=== PATIENT | male | born 2000 | race Caucasian/White ===

== ENCOUNTER 2021-10-26 22:26 | Emergency (ER) | payer BC, MEDICAID, SELFPAY ==
[2021-10-26 22:30] VITALS: BP 144/95; PULSE 102; RESP 18; TEMP 36.9; O2SAT 100
[2021-10-27 00:35] VITALS: BP 124/80; PULSE 94; RESP 16; O2SAT 100
[2021-10-27] MEDS: ONDANSETRON HCL ODT 4 MG TABLET PO (00:39)
--- NOTE | 2021-10-27 00:51 | ED.URI ---
HPI - URI/Sore Throat General Chief Complaint: Upper Respiratory Infection <KURTIS Schuster Last Filed: 10/27/21 03:01> Stated Complaint: sore throat, nasal drainage, cough <KURTIS Schuster Last Filed: 10/27/21 03:01> Time Seen by Provider: 10/26/21 23:16 <KURTIS Schuster Last Filed: 10/27/21 03:01> History of Present Illness HPI Narrative: Patient is a 21-year-old male here for evaluation of sore throat, congestion, productive cough for 2 days. States it feels similar to his previous sinus infections, however is unrelieved with Flonase and Sudafed. Sore throat is worse with swallowing, but he is tolerating his secretions and is eating and drinking normally. Additionally developed some nausea and had about 3 episodes of vomiting nonbloody, nonbilious emesis today. Denies sick contacts, abdominal pain, fevers, chills, changes in his stool, ear pain. Patient is not vaccinated against COVID or flu. States he came in today because he missed work the past 2 days and would like a note. <KURTIS Schuster Last Filed: 10/27/21 03:01> Related Data Allergies/Adverse Reactions: Allergies Allergy/AdvReac Type Severity Reaction Status Date / Time No Known Allergies Allergy Verified 10/26/21 22:27 <KURTIS Schuster Last Filed: 10/27/21 03:01> Review of Systems Review of Systems: Gen.: Denies fevers or chills Eyes: Denies eye pain or visual change ENT: Reports congestion and sore throat Respiratory: Reports cough. denies shortness of breath CV: Denies chest pain or palpitations GI: Reports nausea and vomiting. Denies abdominal pain, diarrhea denies burning, urgency, frequency or hematuria Musculoskeletal: Denies back pain or muscle pain Neuro: Denies numbness, tingling, weakness or focal weakness Skin: Denies rash Except as documented, all other systems reviewed and negative <KURTIS Schuster Last Filed: 10/27/21 03:01> Exam Narrative: APPEARANCE: Well appearing, no pain in distress, well-nourished. Head normocephalic and atraumatic. EYES: PERRLA/EOMI, conjunctivae clear NOSE: No nasal drainage NECK: Anterior cervical lymphadenopathy on the left that is mobile and tender. EARS: External ear normal in appearance. THROAT: Oropharynx is erythematous. Mucous membranes are moist. NECK: Supple. No adenopathy, no masses. RESPIRATORY: Airway patent, respirations nonlabored. Clear to auscultation bilaterally, no rales, rhonchi, wheezing. CARDIOVASCULAR: Regular rate and rhythm without murmurs, rubs, or gallops. ABDOMINAL: Normoactive bowel sounds. Soft, nontender, nondistended. No rebound tenderness or guarding. MUSCULOSKELETAL: Extremities are warm and well-perfused. Moves all extremities well. No edema. NEURO: Normal speech. No focal neurologic deficits. SKIN: Skin is warm and dry. No rashes. PSYCHIATRIC: Normal affect/mood. <Nereyda Salgado PA-C - Last Filed: 10/27/21 03:01> Course Course Emergency Course: Patient rechecked, sleeping in room. States he feels better after Zofran. COVID, flu, and strep negative. Will send for prescription for benzonatate for his cough and encouraged Flonase and Sudafed for his symptoms. <Nereyda Salgado PA-C - Last Filed: 10/27/21 03:01> [employer] [employer]/PA Physician Supervision For this patient encounter, I reviewed the [employer] [facility] [facility] or PA documentation, treatment plan, and medical decision making <Peter Morales MD - Last Filed: 10/27/21 03:20> Vital Signs Vital signs: Vital Signs Temperature 98.4 F 10/26/21 22:30 Pulse Rate 102 H 10/26/21 22:30 Respiratory Rate 18 10/26/21 22:30 Blood Pressure 144/95 H 10/26/21 22:30 Pulse Oximetry 100 10/26/21 22:30 Temperature 98.4 F 10/26/21 22:30 Pulse Rate 94 10/27/21 00:35 Respiratory Rate 16 10/27/21 00:35 Blood Pressure 124/80 10/27/21 00:35 Pulse Oximetry 100 10/27/21 00:35 <Nereyda Graham
[2021-10-27 01:23] LABS: Influenza A QL RT-PCR Negative (Negative); Influenza B QL RT-PCR Negative (Negative); SARS-CoV-2 RNA PCR Negative
== END 2021-10-27 01:54 | disposition home or self-care (01) ==
PROVIDERS: Physician Assistant; Emergency Provider Emergency Medicine
DX: J06.9 Acute upper respiratory infection, unspecified (principal); Z20.822 Contact with and (suspected) exposure to COVID-19; Z28.310 Unvaccinated for COVID-19
CPT/HCPCS: 87081; 87502; 87880; 99283; A9270; C9803; U0003; U0005

== ENCOUNTER 2021-12-08 21:53 | Emergency (ER) | payer BC, MEDICAID, SELFPAY ==
[2021-12-08 21:57] VITALS: BP 150/86; PULSE 83; RESP 18; TEMP 35.6; O2SAT 98
--- NOTE | 2021-12-08 23:35 | ED.NAVMDI ---
HPI - Nausea/Vomiting/Diarrhea General Chief complaint: Nausea/Vomiting/Diarrhea Stated complaint: n/v Time Seen by Provider: 12/08/21 22:57 History of Present Illness HPI Narrative: 21-year-old male presents the emergency room complaints of nausea vomiting and diarrhea since Thursday. Patient states symptoms started with abdominal cramping but that is since resolved. Patient fever. Patient denies nonbloody, nonbilious vomiting. Denies any blood in stool. Related Data Allergies Allergy/AdvReac Type Severity Reaction Status Date / Time No Known Allergies Allergy Verified 12/08/21 23:39 Review of Systems Review of Systems: CONSTITUTIONAL: Denies fever, chills, or sweats. EYES: Denies visual changes, redness, or discharge. ENT: Denies rhinorrhea, congestion, sore throat, or otalgia. CARDIOVASCULAR: Denies chest pain, palpitations, or edema. RESPIRATORY: Denies cough or dyspnea. GASTROINTESTINAL: Denies abdominal pain, reports nausea, vomiting, and diarrhea. GENITOURINARY: Denies dysuria or hematuria. SKIN: Denies rash or itching. MUSCULOSKELETAL: Denies back pain, joint pain, or myalgia. NEUROLOGIC: Denies headache, numbness, dizziness, or weakness. PSYCHIATRIC: Denies anxiety or depression. Exam Narrative: GENERAL: Well-appearing, well-nourished, and in no acute distress. HEAD: Normocephalic, atraumatic. EYES: PERRLA and EOMI. CHEST: Clear to auscultation. No respiratory distress. No wheezes rales or rhonchi HEART: Regular rate and rhythm. No murmur heard. Normal peripheral pulses. ABDOMEN: Soft, nontender, nondistended, normal active bowel sounds. EXTREMITIES: Normal range of motion. No edema. SKIN: Warm, dry, no rash. NEURO: No focal deficits. Alert and oriented x3. PSYCH: Normal mood and affect. Course Vital Signs Vital signs: Vital Signs Temperature 35.6 C L 12/08/21 21:57 Pulse Rate 83 12/08/21 21:57 Respiratory Rate 18 12/08/21 21:57 Blood Pressure 150/86 H 12/08/21 21:57 Pulse Oximetry 98 12/08/21 21:57 Oxygen Delivery Room Air 12/08/21 21:57 Temperature 35.6 C L 12/08/21 21:57 Pulse Rate 68 12/08/21 23:37 Respiratory Rate 20 12/08/21 23:37 Blood Pressure 132/67 12/08/21 23:37 Pulse Oximetry 97 12/08/21 23:37 Oxygen Delivery Room Air 12/08/21 21:57 MDM - Nausea/Vomiting/Diarrhea MDM Narrative Medical decision making narrative: 20-year-old male patient presented to the emergency room nausea and vomiting likely secondary to benign infectious cause. Patient is low risk for SBO she had no abdominal surgeries and having regular soft BMs. No signs of DKA on labs. CMP unremarkable with no signs of dehydration causing prerenal DEVORA. Lipase was elevated as a low to moderate suspicion for mild pancreatitis. CMP was unremarkable and along with history and his exam is a low suspicion for appendicitis or any biliary pathology. Patient was given Zofran and IV fluids and tolerated p.o. fluids. Patient be discharged with Zofran follow-up with primary care physician to reevaluate his elevated lipase. Lab Data Attestation: I reviewed the patient's lab results. Result diagrams: 12/08/21 23:40 12/08/21 23:40 Labs: Lab Results 12/08/21 12/08/21 12/09/21 Range/Units 23:40 23:40 00:25 WBC 5.9 (4.5-10.0) K/mm3 RBC 4.93 (4.6-6.20) M/mm3 Hgb 14.5 (14.0-18.0) g/dL Hct 40.9 L (42.0-52.0) % MCV 83.0 (80-100) fl MCH 29.4 (26-34) pg MCHC 35.5 (32-36) g/dl RDW 12.0 (11.5-14.5) % Plt Count 250 (150-375) k/mm3 MPV 10.0 (7.4-10.4) fl Immature Gran % (Auto) 0.3 (0-0.5) % Neut % (Auto) 58.1 (45.5-73.1) % Lymph % (Auto) 24.2 (18.3-44.2) % [place] % (Auto) 8.7 H (2.6-8.5) % Eos % (Auto) 8.0 H (0-4.4) % Baso % (Auto) 0.7 (0.2-1.2) % Lymph # (Auto) 1.42 (0.9-3.2) K/mm3 [place] # (Auto) 0.5 (0.1-0.6) K/mm3 Eos # (Auto) 0.5 H (0-0.3) K/mm3 Baso # (Auto) 0.0 (0.0-0.
[2021-12-08 23:37] VITALS: BP 132/67; PULSE 68; RESP 20; O2SAT 97
[2021-12-08] MEDS: ONDANSETRON INJ 4 MG/2 ML VIAL IV PUSH (23:40)
[2021-12-08] MEDS: SODIUM CHLORIDE 0.9% IV 1,000 ML 999 ML IV CONT (23:41)
[2021-12-08 23:53] LABS: Basophils Percent Auto 0.7 % (0.2-1.2); Eosinophils Absolute Auto 0.5 K/mm3 (0-0.3); Hematocrit 40.9 % (42.0-52.0); Hemoglobin 14.5 g/dL (14.0-18.0); Immature Granulocyte Absolute 0.02 K/mm3 (0.00-0.031); Immature Granulocyte Percent A 0.3 % (0-0.5); Lymphocytes Absolute Auto 1.42 K/mm3 (0.9-3.2); Lymphocytes Percent Auto 24.2 % (18.3-44.2); Mean Corpuscular HGB Conc 35.5 g/dl (32-36); Mean Corpuscular Hemoglobin 29.4 pg (26-34); Monocytes Absolute Auto 0.5 K/mm3 (0.1-0.6); Monocytes Percent Auto 8.7 % (2.6-8.5); Neutrophils Absolute Auto 3.4 K/mm3 (1.3-6.7); Neutrophils Percent Auto 58.1 % (45.5-73.1); Platelet Count Result 250 k/mm3 (150-375); Red Blood Count 4.93 M/mm3 (4.6-6.20); White Blood Count 5.9 K/mm3 (4.5-10.0)
[2021-12-09 00:03] LABS: Alanine Aminotransferase 46 U/L (6-50); Albumin Level 4.2 g/dL (3.5-5.1); Alkaline Phosphatase 66 U/L (38-126); Anion Gap 10 mmol/L (8-16); Aspartate Amino Transferase 37 U/L (17-59); Bilirubin,Total 0.4 mg/dL (0.2-1.3); Blood Urea Nitrogen 12 mg/dL (9-20); Calcium 8.8 mg/dL (8.4-10.2); Carbon Dioxide 24 mmol/L (22-30); Chloride 106 mmol/L (98-107); Estimated CRCL calculation 173 ml/min; Estimated Glomerular Filt Rate > 60; Glucose 117 mg/dL (65-110); Lipase 475 U/L (23-300); Potassium 3.5 mmol/L (3.4-5.0); Sodium 140 mmol/L (137-145)
[2021-12-09 00:31] LABS: Appearance Urine Clear (Clear); Bilirubin Urine Negative (Negative); Blood Urine Negative (Negative); Color Urine Yellow (Yellow); Glucose Urine UA Negative (Negative); Ketones Urine Negative (Negative); Leukocyte Esterase Ur Negative LEU/UL (Negative); Nitrate Urine Negative (Negative); Protein Urine Negative (Negative); Specific Grav Ur >= 1.030 (1.001-1.035); Urobilinogen Urine 0.2 mg/dL (<2.0); pH Urine 5.5 (5.0-9.0)
[2021-12-09 00:35] LABS: Bacteria Urine Trace /hpf; Mucus Urine Moderate /lpf; RBC Urine 0-2 /hpf (0-2); Squamous Epithelial Cell Urine Rare /hpf (Few); WBC Urine 0-3 /hpf
[2021-12-09 00:38] LABS: Add Urine Microscopic? YES
[2021-12-09 01:15] VITALS: BP 111/67; PULSE 55; RESP 16; O2SAT 98
== END 2021-12-09 01:15 | disposition home or self-care (01) ==
PROVIDERS: Emergency Provider Nurse Practitioner Family
DX: K52.9 Noninfective gastroenteritis and colitis, unspecified (principal)
CPT/HCPCS: 36415; 80053; 81001; 83690; 85025; 96361; 96374; 99284; J2405; J7030

== ENCOUNTER 2022-01-06 21:49 | Inpatient (IN) | payer BC, MEDICAID, SELFPAY ==
--- NOTE | ~2022-01-06 | CT_ITS ---
EXAMINATION: CT abdomen pelvis w con DATE: 01/07/2022 01:25 INDICATION: Abdominal pain. Elevated serum lipase. TECHNIQUE: Computed tomography (CT) of the abdomen and pelvis was performed with 100 CC Omnipaque 300 intravenous contrast. Automated exposure control and iterative reconstruction technique were employe d. Exam dose: 1300.23 mGy-cm total exam DLP. COMPARISON: None. FINDINGS: The lung bases are clear of infiltrate or consolidation. Normal heart size. No pericardial or pleural effusion. There is hepatic steatosis. No hepatic, splenic, pancreatic, adrenal or renal space-occupying mass le adeel is evident. No bile duct or pancreatic duct dilatation. The gallbladder appears normal. No urina ry tract calculus or hydroureteronephrosis. Normal caliber of the abdominal aorta. No intraperitoneal or retroperitoneal or pelvic mass lesion or adenopathy or ascites. The urinary bladder and prostate gland are unremarkable. No bowel obstruction, bowel wall thickening, pneumatosis or intraperitoneal free air is detected. No evidence of appendicitis. Included skeletal structures are unremarkable. IMPRESSION: Hepatic steatosis The pancreas appears normal; normal pancreas on CT examination does not eliminate the possibility of acute pancreatitis. Clinical correlation is advised Reviewed, dictated and finalized at [facility]. Reviewed, dictated and finalized at [facility]. IMPRESSION: Hepatic steatosis The pancreas appears normal; normal pancreas on CT examination does not elimina te the possibility of acute pancreatitis. Clinical correlation is advised
--- NOTE | ~2022-01-06 | US_ITS ---
US abdomen limited DATE: 01/07/2022 08:44 INDICATION: Abdominal pain. Pancreatitis. TECHNIQUE: Real-time imaging of liver, pancreas, gallbladder COMPARISON: 01/07/2022 CT abdomen pelvis FINDINGS: Hepatic steatosis. Normal hepatopedal portal venous flow direction. No hepatic space-occupy ing mass lesion is detected. One or more filling defect(s) may be present at the neck of the gallbladder; cholelithiasis is not ex cluded. No gallbladder wall thickening. Negative sonographic Nicole's sign. The common bile duct measures 3.8 mm, within normal limits. There is limited visualization of the pancreas. IMPRESSION: Possible filling defect(s) at gallbladder neck; cannot exclude cholelithiasis. No gallbla dder distention or gallbladder wall thickening. Negative sonographic Nicole's sign. Consider correlation with hepatobiliary scan Reviewed, dictated and finalized at [facility]. Reviewed, dictated and finalized at [facility]. IMPRESSION: Possible filling defect(s) at gallbladder neck; cannot exclude chol elithiasis. No gallbladder distention or gallbladder wall thickening. Negative sonographic Nicole's sign. Consider correlation with hepatobiliary scan
[2022-01-06 22:46] VITALS: BP 156/87; PULSE 70; RESP 16; TEMP 36.2; O2SAT 100
[2022-01-07 00:30] VITALS: BP 149/84; PULSE 83; RESP 18; O2SAT 99
[2022-01-07 00:46] LABS: Basophils Absolute Auto 0.1 K/mm3 (0.0-0.1); Basophils Percent Auto 0.8 % (0.2-1.2); Eosinophils Absolute Auto 0.5 K/mm3 (0-0.3); Eosinophils Percent Auto 7.1 % (0-4.4); Hematocrit 41.9 % (42.0-52.0); Hemoglobin 14.7 g/dL (14.0-18.0); Immature Granulocyte Absolute 0.03 K/mm3 (0.00-0.031); Immature Granulocyte Percent A 0.4 % (0-0.5); Lymphocytes Absolute Auto 1.92 K/mm3 (0.9-3.2); Lymphocytes Percent Auto 26.6 % (18.3-44.2); Mean Corpuscular HGB Conc 35.1 g/dl (32-36); Mean Corpuscular Hemoglobin 29.1 pg (26-34); Mean Platelet Volume 10.2 fl (7.4-10.4); Monocytes Absolute Auto 0.6 K/mm3 (0.1-0.6); Monocytes Percent Auto 8.2 % (2.6-8.5); Neutrophils Absolute Auto 4.1 K/mm3 (1.3-6.7); Neutrophils Percent Auto 56.9 % (45.5-73.1); Platelet Count Result 237 k/mm3 (150-375); Red Blood Count 5.05 M/mm3 (4.6-6.20); Red Cell Distribution Width 11.8 % (11.5-14.5); White Blood Count 7.2 K/mm3 (4.5-10.0)
[2022-01-07 00:57] LABS: Alanine Aminotransferase 35 U/L (6-50); Albumin Level 4.4 g/dL (3.5-5.1); Alkaline Phosphatase 63 U/L (38-126); Anion Gap 3 mmol/L (8-16); Aspartate Amino Transferase 28 U/L (17-59); Bilirubin,Total 0.1 mg/dL (0.2-1.3); Blood Urea Nitrogen 10 mg/dL (9-20); Calcium 9.2 mg/dL (8.4-10.2); Carbon Dioxide 27 mmol/L (22-30); Chloride 112 mmol/L (98-107); Estimated CRCL calculation 197 ml/min; Estimated Glomerular Filt Rate > 60; Glucose 107 mg/dL (65-110); Lactic Acid Reflex 1.3 mmol/L (0.7-2.0); Lipase 1336 U/L (23-300); Potassium 4.1 mmol/L (3.4-5.0); Sodium 142 mmol/L (137-145)
--- NOTE | 2022-01-07 01:07 | ED.GENADULT ---
HPI - General Adult General Chief complaint: Nausea/Vomiting/Diarrhea Stated complaint: abd pain, vomitting Time Seen by Provider: 01/07/22 00:24 History of Present Illness HPI narrative: 21-year-old male presenting to the emergency department for evaluation of periumbilical abdominal pain. Patient states the pain has been intermittent over the course of the last month. Patient states it is worsened with movement but also worsened with eating. Patient denies any prior history with his gallbladder. Patient denies any alcohol use. Patient was seen in the emergency room for this same pain and was referred to his primary care physician. During his first ER visit his lipase was mildly elevated but did normalize for his PCP visit 1.5 weeks ago. Patient was told that everything was normal at that time. Today patient woke up with more significant abdominal pain. Patient did have a bowel movement and states that some of the pain did improve. While in route to work patient had onset of vomiting, which was new. Patient presented to the emergency department for evaluation due to the persistent pain and new onset of emesis. Related Data Allergies Allergy/AdvReac Type Severity Reaction Status Date / Time No Known Allergies Allergy Verified 01/06/22 22:48 Review of Systems Review of Systems: CONSTITUTIONAL: Denies fever, chills, or sweats. EYES: Denies visual changes, redness, or discharge. ENT: Denies rhinorrhea, congestion, sore throat, or otalgia. CARDIOVASCULAR: Denies chest pain, palpitations, or edema. RESPIRATORY: Denies cough or dyspnea. GASTROINTESTINAL: See HPI GENITOURINARY: Denies dysuria or hematuria. SKIN: Denies rash or itching. MUSCULOSKELETAL: Denies back pain, joint pain, or myalgia. NEUROLOGIC: Denies headache, numbness, or weakness. [facility] Family History Family History Grandparent Cancer Lupus Social History Social History (Updated 12/23/21 @ 07:56 by Emi Theodore MA) Smoking packs per day: 0.4 Smoking cigarettes per day: 8.0 Years smoked: 2 Smoking pack-years: 0.80 Smoking status: Current every day smoker Tobacco type: cigarettes Second hand tobacco smoke exposure: No Alcohol intake: never Substance use: current Substance use type: marijuana Gender identity (if verbalized by the patient): Male Spiritual care concerns: No Agree to blood products: Yes Exam Narrative: APPEARANCE: Well appearing, no pain, no distress, well-nourished. HEAD: normocephalic, atraumatic. EYES: PERRLA/EOMI, conjunctivae clear. NOSE: Normal no drainage NECK: Supple. No adenopathy, no masses. RESPIRATORY: Airway patent, respirations nonlabored. Clear to auscultation bilaterally, no rales, rhonchi, wheezing. CARDIOVASCULAR: Regular rate and rhythm without murmurs rubs or gallops. ABDOMINAL: Soft, normal bowel sounds, nondistended, some mid abdominal pain to palpation. MUSCULOSKELETAL: Moves all extremities. Strength/ROM intact, No edema, No calf tenderness. NEURO: Alert. Cranial nerves II through XII intact. Good gait. Good coordination SKIN: Warm, dry. Normal Color Course Course Emergency Course: Patient's lipase was elevated at 1336. CT scan showed no acute abnormality. Case was discussed with the hospitalist and patient was made n.p.o. and will be admitted for observation to [facility]. Patient was updated on the plan for admission. All questions and concerns were addressed. Right upper quadrant ultrasound was ordered for inpatient. Vital Signs Vital signs: Vital Signs Temperature 97.1 F L 01/06/22 22:46 Pulse Rate 70 01/06/22 22:46 Respiratory Rate 16 01/06/22 22:46 Blood Pressure 156/87 H 01/06/22 22:46 Pulse Oximetry 100 01/06/22 22:46 Temperature 98.5 F 01/07/22 04:30 Pulse Rate 64 01/07/22 04:30 Respiratory Rate 16 01/07/22 04:30 Blood Pressure 132/87 01/07/22 04:30 Pulse Oximetry 100 01/07/22 0
[2022-01-07] MEDS: SODIUM CHLORIDE 0.9% IV 1,000 ML 999 ML IV CONT (01:20)
[2022-01-07 01:58] LABS: Appearance Urine Clear (Clear); Bilirubin Urine Negative (Negative); Blood Urine Negative (Negative); Color Urine Yellow (Yellow); Glucose Urine UA Negative (Negative); Ketones Urine Negative (Negative); Leukocyte Esterase Ur Negative LEU/UL (Negative); Nitrate Urine Negative (Negative); Protein Urine Negative (Negative); Specific Grav Ur <= 1.005 (1.001-1.035); Urobilinogen Urine 0.2 mg/dL (<2.0)
[2022-01-07 02:01] LABS: Add Urine Microscopic? NO
[2022-01-07 02:31] VITALS: BP 135/89; PULSE 64; RESP 18; O2SAT 100
[2022-01-07] MEDS: ONDANSETRON INJ 4 MG/2 ML VIAL IV PUSH ×4 (02:31→15:38)
[2022-01-07 03:17] LABS: Triglycerides 155 mg/dL (<150)
[2022-01-07] MEDS: HYDROmorphone HCL INJ (*CRX) 1 MG/ML SYR 0.5 MG IV PUSH (03:29)
[2022-01-07] MEDS: SODIUM CHLORIDE 0.9% IV 1,000 ML 200 ML IV CONT ×2 (03:30→10:32)
[2022-01-07 04:14] VITALS: BP 115/74; PULSE 56; RESP 18; O2SAT 99
[2022-01-07 04:23] LABS: SARS-CoV-2 RNA PCR Negative
--- NOTE | 2022-01-07 04:24 | ADMGEN ---
This patient, Ortiz Siegel, was admitted to [facility] Surg Room 319-01. Patient/family oriented to hospital policies and general routines including ID bracelet, bed and alarms, visiting hours, pain management, procedures, bathroom and other care routines, personal items, smoking policy, room service/diet, and visiting hours. Information on how to activate the Rapid Response Team has been discussed. Patient/Family are encouraged to report perceived risks to care and to ask questions if they do not understand what they are told or what they should do.
[2022-01-07 04:30] VITALS: BP 132/87; PULSE 64; RESP 16; TEMP 36.9; O2SAT 100
[2022-01-07 06:00] VITALS: BP 132/81; PULSE 61; RESP 16; TEMP 36.8; O2SAT 99
[2022-01-07] MEDS: NICOTINE (*PBKC) 14 MG PATCH 1 PATCH TRANSDERM (07:44)
--- NOTE | 2022-01-07 09:44 | PM.IMHP ---
H&P: HPI History of Present Illness Date/Time: 01/07/22 09:44 PMFSH Family History Family History Grandparent Cancer Lupus Social History Social History (Updated 12/23/21 @ 07:56 by Emi Theodore MA) Smoking packs per day: 0.4 Smoking cigarettes per day: 8.0 Years smoked: 2 Smoking pack-years: 0.80 Smoking status: Current every day smoker Tobacco type: cigarettes Second hand tobacco smoke exposure: No Alcohol intake: never Substance use: current Substance use type: marijuana Gender identity (if verbalized by the patient): Male Spiritual care concerns: No Agree to blood products: Yes Meds Home Medications and Allergies Home Medications Medication Instructions Recorded Confirmed Type pantoprazole 40 mg tablet,delayed 40 mg PO QAM #60 tabs 12/23/21 12/23/21 Rx release Allergies Allergy/AdvReac Type Severity Reaction Status Date / Time No Known Allergies Allergy Verified 01/06/22 22:48 Vital Signs Vital Signs - 24 hr 01/06/22 22:46 01/07/22 00:30 01/07/22 02:31 Temperature 97.1 F L Pulse Rate 70 83 64 Respiratory Rate 16 18 18 Blood Pressure 156/87 H 149/84 H 135/89 Pulse Oximetry 100 99 100 Oxygen Delivery Room Air 01/07/22 04:14 01/07/22 04:30 01/07/22 06:00 Temperature 98.5 F 98.3 F Pulse Rate 56 L 64 61 Respiratory Rate 18 16 16 Blood Pressure 115/74 132/87 132/81 Pulse Oximetry 99 100 99 Oxygen Delivery H&P: Results Labs Labs: Short CBC 01/07/22 Range/Units 00:41 WBC 7.2 (4.5-10.0) K/mm3 Hgb 14.7 (14.0-18.0) g/dL Hct 41.9 L (42.0-52.0) % Plt Count 237 (150-375) k/mm3 BMP 01/07/22 00:41 Sodium 142 Potassium 4.1 Chloride 112 H Carbon Dioxide 27 BUN 10 Creatinine 0.70 Glucose 107 Calcium 9.2 Liver Function 01/07/22 Range/Units 00:41 Total Bilirubin 0.1 L (0.2-1.3) mg/dL AST 28 (17-59) U/L ALT 35 (6-50) U/L Alkaline Phosphatase 63 (38-126) U/L Albumin 4.4 (3.5-5.1) g/dL Urine 01/07/22 Range/Units 01:52 Urine Color Yellow (Yellow) Urine Appearance Clear (Clear) Urine pH 6.0 (5.0-9.0) Ur Specific [place] <= 1.005 (1.001-1.035) Urine Protein Negative (Negative) mg/dL Urine Glucose (UA) Negative (Negative) mg/dL
[2022-01-07 14:00] VITALS: BP 140/92; PULSE 81; RESP 18; TEMP 36.6; O2SAT 100
--- NOTE | 2022-01-07 16:31 | PM.SD2 ---
Same Day Admit/Disch: HPI History of Present Illness Chief complaint: Pancreatitis Narrative: Ortiz Siegel is a 21 year old male with past medical history of tobacco dependence occasional GERD is presenting with 4-6 week history of intermittent nausea with vomiting. He denies any abdominal pain or diarrhea. No chest pain or shortness of breath. No nausea, vomiting or diarrhea. No fevers or chills. Nausea and vomiting does not seem to correlate with food intake. It does not seem to be positional. He states it is most correlated with stress. In the ER, he was started on IV fluids for possible dehydration. CT abdomen and pelvis was done and was essentially nonacute. Right upper quadrant ultrasound was performed and showed possible abnormality in the gallbladder, radiology recommended HIDA scan. Patient requesting to go home if he can tolerate dinner. He states he has been under significant stress at home and at work and is worried that all of his symptoms are stress related. [facility] Family History Family History Grandparent Cancer Lupus Social History Social History Smoking packs per day: 0.4 Smoking cigarettes per day: 8.0 Years smoked: 2 Smoking pack-years: 0.80 Smoking status: Current every day smoker Tobacco type: cigarettes Second hand tobacco smoke exposure: No Alcohol intake: never Substance use: current Substance use type: marijuana Gender identity (if verbalized by the patient): Male Spiritual care concerns: No Agree to blood products: Yes Same Day Admit/Disch: Med Pre-admit Medications Home Medications Medication Instructions Recorded Confirmed Type pantoprazole 40 mg tablet,delayed 40 mg PO QAM #60 tabs 12/23/21 12/23/21 Rx release Exam Narrative: General: Patient resting comfortably in bed, no acute distress HEENT: Atraumatic, normocephalic, mucous membranes moist CV: Regular rate and rhythm, S1, S2, no murmurs rubs or gallops noted Lungs: Clear to auscultation bilaterally, no rales or crackles noted, no wheezes, good air entry Abdomen: Soft, nontender, nondistended Extremities: Normal to inspection, no edema noted Skin: No rashes noted, no lesions or wounds seen Psych: Euthymic, normal affect Neuro: Cranial nerves 2-12 grossly intact, strength 5/5 upper and lower extremities noted DS: Data Data Completed and Pending Labs on day of discharge: Labs from last 24 hours 01/07/22 01/07/22 01/07/22 03:42 01:52 00:41 WBC RBC Hgb Hct MCV MCH MCHC RDW Plt Count MPV Immature Gran % (Auto) Neut % (Auto) Lymph % (Auto) [place] % (Auto) Eos % (Auto) Baso % (Auto) Lymph # (Auto) [place] # (Auto) Eos # (Auto) Baso # (Auto) Abs Immat Gran (auto) Absolute Neuts (auto) Absolute Nucleated RBC Nucleated RBC % Sodium Potassium Chloride Carbon Dioxide Anion Gap BUN Creatinine Estim Creat Clear Calc Estimated GFR Glucose Lactic Acid 1.3 Calcium Total Bilirubin AST ALT Alkaline Phosphatase Total Protein Albumin Triglycerides Lipase Urine Color Yellow Urine Appearance Clear Urine pH 6.0 Ur Specific [place] <= 1.005 Urine Protein Negative Urine Glucose (UA) Negative Urine Ketones Negative Ur Blood (Man) Negative Urine Nitrate Negative Urine Bilirubin Negative Urine Urobilinogen 0.2 Leukocyte Esterase Rfl Negative SARS-CoV-2 RNA (RT-PCR) Negative 01/07/22 01/07/22 01/07/22 00:41 00:41 00:40 WBC 7.2 RBC 5.05 Hgb 14.7 Hct 41.9 L MCV 83.0 MCH 29.1 MCHC 35.1 RDW 11.8 Plt Count 237 MPV 10.2 Immature Gran % (Auto) 0.4 Neut % (Auto) 56.9 Lymph % (Auto) 26.6 [place] % (Auto) 8.2 Eos % (Auto) 7.1 H Baso % (Auto) 0.8
[2022-01-07 16:56] LABS: Hematocrit 41.2 % (42.0-52.0); Hemoglobin 14.7 g/dL (14.0-18.0); Mean Corpuscular HGB Conc 35.7 g/dl (32-36); Mean Corpuscular Hemoglobin 29.3 pg (26-34); Mean Corpuscular Volume 82.1 fl (80-100); Mean Platelet Volume 9.9 fl (7.4-10.4); Platelet Count Result 238 k/mm3 (150-375); Red Blood Count 5.02 M/mm3 (4.6-6.20); Red Cell Distribution Width 11.9 % (11.5-14.5); White Blood Count 9.4 K/mm3 (4.5-10.0)
[2022-01-07 17:06] LABS: Alanine Aminotransferase 35 U/L (6-50); Albumin Level 4.4 g/dL (3.5-5.1); Alkaline Phosphatase 58 U/L (38-126); Anion Gap 7 mmol/L (8-16); Aspartate Amino Transferase 28 U/L (17-59); Bilirubin,Total 0.4 mg/dL (0.2-1.3); Blood Urea Nitrogen 6 mg/dL (9-20); Calcium 8.8 mg/dL (8.4-10.2); Carbon Dioxide 27 mmol/L (22-30); Chloride 105 mmol/L (98-107); Estimated CRCL calculation 174 ml/min; Estimated Glomerular Filt Rate > 60; Glucose 87 mg/dL (65-110); Lipase 198 U/L (23-300); Potassium 3.6 mmol/L (3.4-5.0); Sodium 139 mmol/L (137-145)
== END 2022-01-07 18:55 | disposition home or self-care (01) | DRG 440 ==
LOC: ANHED 01-07 03:09 → ANH3MEDSUR 01-07 04:01
PROVIDERS: Admitting Provider Internal Medicine; Emergency Provider Emergency Medicine; Visit Provider Student in an Organized Health Care Education/Training Program
DX: K85.90 Acute pancreatitis without necrosis or infection, unspecified (principal); E86.0 Dehydration; K21.9 Gastro-esophageal reflux disease without esophagitis; Z20.822 Contact with and (suspected) exposure to COVID-19; F17.210 Nicotine dependence, cigarettes, uncomplicated
CPT/HCPCS: 36415; 74177; 76705; 80053; 81003; 83605; 83690; 84478; 85025; 85027; 96361; 96374; 96375; 99285; A9270; C9803; G0378; J1170; J2405; J7030; Q9967; U0003; U0005

== ENCOUNTER 2022-01-11 04:53 | Emergency (ER) | payer BC, MEDICAID, SELFPAY ==
--- NOTE | ~2022-01-11 | US_ITS ---
US abdomen limited DATE: 01/11/2022 07:33 INDICATION: Right upper quadrant abdominal pain TECHNIQUE: Real-time imaging of liver, pancreas, gallbladder COMPARISON: 01/07/2022 Limited abdominal ultrasound examination 01/07/2022 CT abdomen pelvis FINDINGS: Multiple filling defects of the gallbladder with shadowing consistent with cholelithiasis. No gallbladder wall thickening or pericholecystic fluid collection. Negative sonographic Nicole's sig n. Common bile duct measures 4.8 mm, normal. No hepatic space-occupying mass lesion is detected. Normal hepatopedal portal venous flow direction. The pancreas is not well demonstrated. IMPRESSION: Cholelithiasis Reviewed, dictated and finalized at [facility]. Reviewed, dictated and finalized at location A. IMPRESSION: Cholelithiasis
[2022-01-11 04:56] VITALS: BP 147/87; PULSE 102; RESP 16; TEMP 36.2; O2SAT 99
[2022-01-11 05:56] LABS: Basophils Percent Auto 0.5 % (0.2-1.2); Eosinophils Absolute Auto 0.5 K/mm3 (0-0.3); Eosinophils Percent Auto 6.3 % (0-4.4); Hematocrit 42.2 % (42.0-52.0); Hemoglobin 14.6 g/dL (14.0-18.0); Immature Granulocyte Absolute 0.02 K/mm3 (0.00-0.031); Immature Granulocyte Percent A 0.3 % (0-0.5); Lymphocytes Absolute Auto 2.09 K/mm3 (0.9-3.2); Lymphocytes Percent Auto 27.6 % (18.3-44.2); Mean Corpuscular HGB Conc 34.6 g/dl (32-36); Mean Corpuscular Hemoglobin 28.9 pg (26-34); Mean Corpuscular Volume 83.4 fl (80-100); Mean Platelet Volume 10.1 fl (7.4-10.4); Monocytes Absolute Auto 0.6 K/mm3 (0.1-0.6); Monocytes Percent Auto 7.8 % (2.6-8.5); Neutrophils Absolute Auto 4.4 K/mm3 (1.3-6.7); Neutrophils Percent Auto 57.5 % (45.5-73.1); Platelet Count Result 258 k/mm3 (150-375); Red Blood Count 5.06 M/mm3 (4.6-6.20); White Blood Count 7.6 K/mm3 (4.5-10.0)
[2022-01-11 06:06] LABS: Alanine Aminotransferase 43 U/L (6-50); Albumin Level 4.9 g/dL (3.5-5.1); Alkaline Phosphatase 59 U/L (38-126); Anion Gap 7 mmol/L (8-16); Aspartate Amino Transferase 32 U/L (17-59); Bilirubin,Total 0.2 mg/dL (0.2-1.3); Blood Urea Nitrogen 11 mg/dL (9-20); Calcium 9.3 mg/dL (8.4-10.2); Carbon Dioxide 29 mmol/L (22-30); Chloride 108 mmol/L (98-107); Estimated CRCL calculation 176 ml/min; Estimated Glomerular Filt Rate > 60; Glucose 78 mg/dL (65-110); Lipase 47 U/L (23-300); Potassium 4.1 mmol/L (3.4-5.0); Sodium 144 mmol/L (137-145)
--- NOTE | 2022-01-11 07:10 | ED.ABDPAIN ---
HPI - Abdominal Pain General Chief Complaint: Abdominal Pain Stated Complaint: abd pain Time Seen by Provider: 01/11/22 07:10 History of Present Illness HPI narrative: pt was just here and left admission early elevated lipase normal labs otherwise and normal ct ? US galbladder issue wanted to get hyda scan now pain back no new issues and no one discussed gb diet he says so we discussed foods to avoid Related Data Allergies Allergy/AdvReac Type Severity Reaction Status Date / Time No Known Allergies Allergy Verified 01/06/22 22:48 Review of Systems Constitutional: Comments: CONSTITUTIONAL: Denies fever, chills, or sweats. EYES: Denies visual changes, redness, or discharge. ENT: Denies rhinorrhea, congestion, sore throat, or otalgia. CARDIOVASCULAR: Denies chest pain, palpitations, or edema. RESPIRATORY: Denies cough or dyspnea. GASTROINTESTINAL: Denies nausea, vomiting, or diarrhea.has same ruq pain again SKIN: Denies rash or itching. MUSCULOSKELETAL: Denies back pain, joint pain, or myalgia. NEUROLOGIC: Denies headache, numbness, or weakness. PSYCHIATRIC: Denies anxiety or depression. [facility] Family History Family History Grandparent Cancer Lupus Social History Social History Smoking packs per day: 0.4 Smoking cigarettes per day: 8.0 Years smoked: 2 Smoking pack-years: 0.80 Smoking status: Current every day smoker Tobacco type: cigarettes Second hand tobacco smoke exposure: No Alcohol intake: never Substance use: current Substance use type: marijuana Gender identity (if verbalized by the patient): Male Spiritual care concerns: No Agree to blood products: Yes Exam Const: Other: APPEARANCE: Well appearing, no pain in distress, well-nourished. Head normocephalic atraumtaic. EYES: PERRLA/EOMI, conjunctivae very clear. NOSE: Normal no drainage EARS:TMS clear Raulito Costa, with good light reflex. THROAT: Pharynx clear, no exudate. NECK: Supple. No adenopathy, no masses. RESPIRATORY: Airway patent, repsirations nonlabored. Clear to auscultation bilaterally, no rales, rhonchi, wheezing. CARDIOVASCULAR: Regular rate and rhythm without murmurs rubs or gallops. ABDOMINAL: Soft, nontender, nondistended, no hepatosplenomegally no pain on exam I could reproduce MUSCULOSKELETAl: Moves all extremities. Strenght/ROM intact, No edema, No calf tenderness. NEURO: Alert. Cranial nerves II through XII intact. Good gait. Good coordination SKIN:: Warm, dry. Normal Color PSYCHIATRIC: Normal affect/mood, normal interaction with parents. Course Course Emergency Course: updated [place] at 0819 good with plan Vital Signs Vital signs: Vital Signs Temperature 36.2 C L 01/11/22 04:56 Pulse Rate 102 H 01/11/22 04:56 Respiratory Rate 16 01/11/22 04:56 Blood Pressure 147/87 H 01/11/22 04:56 Pulse Oximetry 99 01/11/22 04:56 Oxygen Delivery Room Air 01/11/22 04:56 Temperature 36.2 C L 01/11/22 04:56 Pulse Rate 102 H 01/11/22 04:56 Respiratory Rate 16 01/11/22 04:56 Blood Pressure 147/87 H 01/11/22 04:56 Pulse Oximetry 99 01/11/22 04:56 Oxygen Delivery Room Air 01/11/22 04:56 MDM - Abdominal Pain Lab Data Result diagrams: 01/11/22 05:51 01/11/22 05:51 Labs: Lab Results 01/11/22 01/11/22 Range/Units 05:51 05:51 WBC 7.6 (4.5-10.0) K/mm3 RBC 5.06 (4.6-6.20) M/mm3 Hgb 14.6 (14.0-18.0) g/dL Hct 42.2 (42.0-52.0) % MCV 83.4 (80-100) fl MCH 28.9 (26-34) pg MCHC 34.6 (32-36) g/dl RDW 12.0 (11.5-14.5) % Plt Count 258 (150-375) k/mm3 MPV 10.1 (7.4-10.4) fl Immature Gran % (Auto) 0.3 (0-0.5) % Neut % (Auto) 57.5 (45.5-73.1) % Lymph % (Auto) 27.6 (18.3-44.2) % [place] % (Auto) 7.8 (2.6-8.5) % Eos % (Auto) 6.3 H (0-4.4) % Baso % (Auto) 0.5 (0.2-1.2) % Lymph # (Auto) 2.09 (0.9-3
== END 2022-01-11 08:30 | disposition home or self-care (01) ==
PROVIDERS: Emergency Medicine; Emergency Provider Emergency Medicine; PCP Family Medicine Adolescent Medicine
DX: K80.20 Calculus of gallbladder without cholecystitis without obstruction (principal); F17.210 Nicotine dependence, cigarettes, uncomplicated
CPT/HCPCS: 36415; 76705; 80053; 83690; 85025; 99283

== ENCOUNTER 2022-01-29 08:13 | Outpatient (CLI) | payer BC, MEDICAID, SELFPAY | END 2022-01-29 08:14 | disposition home or self-care (01) | PROVIDERS: PCP Family Medicine Adolescent Medicine; Visit Provider Surgery | DX: K80.10 Calculus of gallbladder with chronic cholecystitis without obstruction (principal); Z01.818 Encounter for other preprocedural examination | CPT/HCPCS: 36415; 80076; 82150; 83690; 86850; 86900; 86901 ==

== ENCOUNTER 2022-01-31 00:26 | Day surgery (SDC) | payer BC, MEDICAID, SELFPAY ==
[2022-01-24 14:52] VITALS: BMI 35.6
--- NOTE | 2022-01-24 14:59 | PC.NURSE ---
Report to the Outpatient Waiting Room, entrance under the green pavilion located off [facility], at time 8:30 on date 01/31/22. OR Time: 10:30. - You and your visitor will be asked a series of questions to screen for COVID 19 for your protection. - Only one visitor is allowed at this time. - The patient visitor is requested to leave or wait in car when not with patient. - A mask is required within the hospital. Patients may have clear liquids (water, carbonated beverages, clear teas, apple juice) until 3 hours prior to surgery (7:30) with a maximum of 20 ounces. - No food from midnight until time of surgery Take the following medications with a SIP of water the morning of surgery: NONE Medications to discontinue per physician: N/A Date to take last dose: N/A Please no make-up, nail kyrgyz, hairspray, perfume, deodorant, or body powder the day of surgery. No jewelry (including any body piercings) or valuables the day of surgery, leave them at home. Please take a shower or bath the night before, or the morning of, surgery with an antibacterial soap. Wear comfortable, loose fitting clothing. HIBICLENS SHOWER - Jewelry must be removed prior to entering the operating room. Rings and piercings that are not removed may be cut off. - The hospital will not accept responsibility for valuables. - Please leave all valuables, including medications, at home the day of surgery. If you are going home after surgery, a licensed package delivery driver must drive you home. - NO public transportation without another adult. - We recommend that an adult stay with you for 24 hours following discharge. - We also recommend that you do not drive, make important decision, drink alcoholic beverages, or take any drugs that were not prescribed by your health care provider for at least 24 hours after your discharge time. Follow any additional instructions given to you from your surgeon. If you or anyone in your household have experienced Covid symptoms in the past week, please notify your surgeon or the nurse liaison at the phone number below for possible testing. Telephone instructions given to PT - NITHIN CONNOR and asked if any additional questions and then verbalized understanding. Patient advised to call surgeon office or pre surgery nurse liaison [phone] if any additional questions.
[2022-01-29 08:52] LABS: Alanine Aminotransferase 38 U/L (6-50); Albumin Level 4.7 g/dL (3.5-5.1); Alkaline Phosphatase 63 U/L (38-126); Amylase 86 U/L (30-110); Aspartate Amino Transferase 27 U/L (17-59); Bilirubin,Total 0.5 mg/dL (0.2-1.3); Lipase 327 U/L (23-300)
--- NOTE | 2022-01-30 10:33 | WPDANESEPPF ---
Anes - Initial Pre Proc Eval Procedure: Operation Date: 01/31/22 10:30 Proposed Procedures p Laparoscopic Cholecystectomy with Intraoperative Cholangiogram - David Rasmussen MD <Tolu Matta MD - Last Filed: 01/31/22 12:53> Date/Time: 01/30/22 10:33 <Tolu Matta MD - Last Filed: 01/31/22 12:53> Surgeon: David Rasmussen MD <Tolu Matta MD - Last Filed: 01/31/22 12:53> Pre Op Diagnosis: Chronic Cholecystitis with Stones <Tolu Matta MD - Last Filed: 01/31/22 12:53> Patient Data Age: 21 Gender: M Height: 1.85 m Weight: 122.47 kg <Tolu Matta MD - Last Filed: 01/31/22 12:53> Allergies Allergy/AdvReac Type Severity Reaction Status Date / Time No Known Allergies Allergy Verified 01/24/22 14:51 <Tolu Matta MD - Last Filed: 01/31/22 12:53> Home Medications Medication Instructions Recorded Confirmed Type ondansetron 4 mg disintegrating 1 tablet PO Q8H PRN Nausea 01/24/22 01/31/22 History tablet hydrocodone 5 mg-acetaminophen 325 1 - 2 tablet PO Q6H PRN pain #10 01/31/22 Rx mg tablet tabs ketorolac 10 mg tablet 10 mg PO Q6H 4 days #16 tabs 01/31/22 Rx <Tolu Matta MD - Last Filed: 01/31/22 12:53> Patient hx anesthesia problems: none <Sincere Calvo DO - Last Filed: 01/31/22 09:38> Family hx anesthesia problems: none <Sincere Calvo DO - Last Filed: 01/31/22 09:38> Results Review: All pre-operative results and documents have been reviewed as part of the pre-operative evaluation. <Tolu Matta MD - Last Filed: 01/31/22 12:53> PMFSH Past Medical History Medical History: Medical History Obesity (BMI 30-39.9) Tobacco use <Tolu Matta MD - Last Filed: 01/31/22 12:53> Surgical History Surgical History: Surgical History (Updated 01/31/22 @ 11:37 by Piotr Hogan MD) History of cholecystectomy (01/2022) <Tolu Matta MD - Last Filed: 01/31/22 12:53> Family History Family History: Family History Grandparent Cancer Lupus <Tolu aMtta MD - Last Filed: 01/31/22 12:53> Social History Social History: Social History Smoking packs per day: 0.4 Smoking cigarettes per day: 8.0 Years smoked: 1.5 Smoking pack-years: 0.60 Smoking status: Current every day smoker Tobacco type: cigarettes Second hand tobacco smoke exposure: No Alcohol intake: never Substance use: current Substance use type: marijuana Living arrangements: alone Gender identity (if verbalized by the patient): Male Spiritual care concerns: No Agree to blood products: Yes <Tolu Matta MD - Last Filed: 01/31/22 12:53> Anes - Eval Final PreProcedure Day of Procedure 01/30/22 10:33 <Tolu Matta MD - Last Filed: 01/31/22 12:53> Patient weight: obese <Tolu Matta MD - Last Filed: 01/31/22 12:53> Heart: regular rate and rhythm <Tolu Matta MD - Last Filed: 01/31/22 12:53> Lungs: clear to auscultation and normal air movement <Tolu Matta MD - Last Filed: 01/31/22 12:53> Airway: Mallampati scale class II <Tolu Matta MD - Last Filed: 01/31/22 12:53> Neurological: alert and oriented <Tolu Matta MD - Last Filed: 01/31/22 12:53> Last oral intake: >/= 8 hours <Tolu Matta MD - Last Filed: 01/31/22 12:53> ASA classification: II <Tolu Matta MD - Last Filed: 01/31/22 12:53> Emergent: no <Tolu Matta MD - Last Filed: 01/31/22 12:53> Anesthetic plan: proceed <Tolu Matta MD - Last Filed: 01/31/22 12:53> Anesthesia type and monitoring: general ETT <Tolu Matta MD - Last Filed: 01/31/22 12:53> Results Review: All pre-operative results and documents have been reviewed as part of t
[2022-01-31] VITALS (13 sets, daily range): BP systolic 115–162; BP diastolic 62–87; PULSE 59–86; RESP 13–20; TEMP 36.2–37.4; O2SAT 89–99
--- NOTE | ~2022-01-31 | XR_ITS ---
XR cholangiogram surg 1st inj DATE: 01/31/2022 11:08 INDICATION: Gallstones. Laparoscopic cholecystectomy TECHNIQUE: 50.1 seconds fluoroscopy time 23.69 mGy 3. Spot C-arm cine runs during contrast material injection into the cystic duct remnant COMPARISON: None FINDINGS: Normal caliber of the common hepatic and common bile ducts and intrahepatic bile ducts. Con trast material flows freely into the duodenum, without obstruction. IMPRESSION: Negative operating room cholangiogram Reviewed, dictated and finalized at [facility]. Reviewed, dictated and finalized at [facility].
--- NOTE | 2022-01-31 07:20 | WPDHPUPDATE1 ---
History and Physical Update Update Date/Time: 01/31/22 07:20 History and Physical has been reviewed, including an updated exam of the patient. There are NO changes in the patient's condition. Risks, benefits, and alternatives have been discussed and questions answered. Patient agrees to proceed with procedure.
[2022-01-31] MEDS: ACETAMINOPHEN 500 MG TABLET 1000 MG PO (09:08)
[2022-01-31] MEDS: LACTATED RINGERS 1,000 ML 30 ML IV CONT ×2 (09:08→12:07)
[2022-01-31] MEDS: KETOROLAC 15 MG/ML VIAL (*BKC) IV PUSH (09:09)
[2022-01-31] MEDS: ceFAZolin 2 GM/D5W 50 ML 2 GM/50 ML BAG IVPB (10:01)
[2022-01-31] MEDS: BUPIVACAINE/EPINEPHRINE 0.25% 50 ML VIAL 30 ML INFILTRATE (11:05)
--- NOTE | 2022-01-31 11:23 | P.OP_ITS ---
Procedure Note - Detailed Date of Procedure 01/31/22 Pre-op Diagnosis Chronic Cholecystitis with Stones, biliary pancreatitis Post-op Diagnosis Same Procedure Performed Laparoscopic cholecystectomy with intraoperative cholangiogram Surgeon David Rasmussen MD [employer] [place] DERMATOLOGIST Anesthesia General and Local (0.25% bupivacaine with epinephrine) Indications Patient is a 21-year-old man with a strong family history of gallbladder disease. He has had at least a couple of episodes of postprandial right upper quadrant abdominal pain. He was in the emergency room both at the end of December and the very early part of January. He has had elevated serum lipase levels associated with this pain. Ultrasound has shown gallstones. His liver enzymes of actually never been elevated. He is taken to surgery now for laparoscopic cholecystectomy for chronic cholecystitis as well as very likely biliary pancreatitis. Findings Intraoperative cholangiogram was negative. Bile ducts were not dilated at all. He had fatty liver. There were gallstones noted in the gallbladder. Description of Procedure Patient was taken to surgery and induced into general anesthesia. The abdomen is prepped and draped. Trocars were placed in usual fashion using 0.25% Marcaine with epinephrine and applied Medical optical trocars. A 5 mm camera was used. The gallbladder was decompressed with a laparoscopic aspirator. The cholecystotomy was closed with Vicryl endoloop. The gallbladder was then retracted anterosuperiorly. Dissection was carried out in the cholecystohepatic triangle. The cystic duct and cystic artery were dissected out very clearly. The gallbladder was dissected off the liver at its lower 3rd. Critical view was achieved. I then securely clipped and divided the cystic artery. I dissected out the distal gallbladder and very proximal cystic duct. I placed a clip on the distal gallbladder. I used the cystic duct scissors and made a small opening in the very proximal cystic duct. I then threaded the cholangiogram catheter into the cystic duct. The cystic duct was quite small but we were able placed the catheter within it. There was some resistance to the flow of the dye but after a couple of attempts I was able to obtain a cholangiogram that showed the bile ducts and duodenal filling. The imaging appeared negative. Dr. Benites read the cholangiogram and I conferred with him during surgery. He felt the cholangiogram was negative as well. We then removed the cholangiogram catheter. I securely clipped and divided the cystic duct. We then dissected the ga llbladder free from its remaining attachments to the liver. Once it was completely freed, it was placed in an Endo-Catch bag and retrieved through the 10 11 epigastric trocar site. We replaced the epigastric trocar and reviewed the right upper quadrant. It was irrigated and suctioned. It was inspected repeatedly. All looked good with no evidence of bleeding or bile leakage. We then evacuated CO2 and removed the trocar sleeves. Skin wounds were closed with subcuticular 4-0 Monocryl skin suture. The wounds were dressed with Exofin surgical adhesive. The patient was awakened and taken to recovery in good condition. Sponge and needle counts were correct x2. Estimated Blood Loss -5 Drains No Packing No Pathology Yes (Gallbladder) Complications No immediate complications Condition Stable Disposition PACU [facility] Billing Surgery - Charge Forward: Surgery Billing (Laparoscopic cholecystectomy with intraoperative cholangiogram)
[2022-01-31] MEDS: ONDANSETRON INJ 4 MG/2 ML VIAL IV PUSH (11:36)
--- NOTE | 2022-01-31 11:56 | SUR.PHASEI ---
1140 - pt with intermittent cough. coughing up blood. pt refuses to wear O2 mask. o2 sats 88-91%. pt refuses to talk to nursing staff. 1145 - dr. carrera at bedside. assessing pt 1155 - pt with a forceful intermittent cough. bloody sputum noted. o2 at 93% on RA.
[2022-01-31] MEDS: fentaNYL CITRATE INJ (*CRX) 100 MCG/2 ML VIAL 25 MCG IV PUSH ×2 (12:06→12:08)
[2022-01-31] MEDS: diphenhydrAMINE HCl INJ 50 MG/ML VIAL 25 MG IV PUSH (12:16)
== END 2022-01-31 14:12 | disposition home or self-care (01) ==
PROVIDERS: PCP Family Medicine Adolescent Medicine; Visit Provider Surgery
PROC: 0FT44ZZ Resection of Gallbladder, Percutaneous Endoscopic Approach (ICD-10-PCS; CPT 47562; principal; 2022-01-31 10:30)
DX: K80.10 Calculus of gallbladder with chronic cholecystitis without obstruction (principal); K85.10 Biliary acute pancreatitis without necrosis or infection; E66.9 Obesity, unspecified; Z68.33 Body mass index [BMI] 33.0-33.9, adult; F17.210 Nicotine dependence, cigarettes, uncomplicated
CPT/HCPCS: 47563; 36415; 74300; 80076; 82150; 83690; 86850; 86900; 86901; 88304; A9270; C1713; J0690; J1100; J1200; J1885; J2250; J2405; J2704; J2710; J3010; J7120; Q9966

== ENCOUNTER 2022-03-06 10:57 | Outpatient (CLI) | payer OTHER, MEDICAID, SELFPAY ==
--- NOTE | ~2022-03-06 | CT_ITS ---
EXAMINATION: CT abdomen pelvis wo/w con DATE: 03/06/2022 12:12 INDICATION: Right flank and epigastric abdominal pain TECHNIQUE: Computed tomography (CT) of the abdomen and pelvis was performed prior to then following t he administration of 100 cc Omnipaque 350 intravenous contrast. The dose-length product (DLP) was 245 4.79 mGy-cm. Automated exposure control and iterative reconstruction technique were employed. COMPARISON: 01/07/2022 FINDINGS: The lung bases are clear. The heart size is normal. There are changes of interval cholecyst ectomy. The liver is diffusely low in attenuation when compared with the spleen, consistent with hepa tic steatosis. The spleen, pancreas, and adrenal glands are normal. The kidneys are unremarkable. No pathologically enlarged abdominal or pelvic lymph nodes are identified. There is no free intraperiton eal gas or evidence of bowel obstruction. There is a tiny umbilical hernia containing fat. The append ix is normal. IMPRESSION: 1. Changes of interval cholecystectomy without acute findings. 2. Diffuse hepatic steatosis. Reviewed, dictated and finalized at location [facility].
[2022-03-06 12:26] LABS: Appearance Urine Clear (Clear); Bilirubin Urine Negative (Negative); Blood Urine Negative (Negative); Color Urine Yellow (Yellow); Glucose Urine UA Negative (Negative); Ketones Urine Negative (Negative); Leukocyte Esterase Ur Negative LEU/UL (NEGATIVE); Nitrate Urine Negative (Negative); Protein Urine Negative (Negative); Specific Grav Ur >= 1.030 (1.001-1.035); Urobilinogen Urine 0.2 mg/dL (<2.0); pH Urine 5.5 (5.0-9.0)
[2022-03-06 12:28] LABS: Basophils Absolute Auto 0.1 K/mm3 (0.0-0.1); Basophils Percent Auto 0.6 % (0.2-1.2); Eosinophils Absolute Auto 0.6 K/mm3 (0-0.3); Eosinophils Percent Auto 7.3 % (0-4.4); Hematocrit 39.3 % (42.0-52.0); Hemoglobin 13.9 g/dL (14.0-18.0); Immature Granulocyte Absolute 0.03 K/mm3 (0.00-0.031); Immature Granulocyte Percent A 0.3 % (0-0.5); Lymphocytes Percent Auto 26.3 % (18.3-44.2); Mean Corpuscular HGB Conc 35.4 g/dl (32-36); Mean Corpuscular Hemoglobin 29.8 pg (26-34); Mean Corpuscular Volume 84.3 fl (80-100); Mean Platelet Volume 10.2 fl (7.4-10.4); Monocytes Absolute Auto 0.6 K/mm3 (0.1-0.6); Monocytes Percent Auto 6.5 % (2.6-8.5); Neutrophils Absolute Auto 5.1 K/mm3 (1.3-6.7); Platelet Count Result 236 k/mm3 (150-375); Red Blood Count 4.66 M/mm3 (4.6-6.20); Red Cell Distribution Width 12.2 % (11.5-14.5); White Blood Count 8.7 K/mm3 (4.5-10.0)
[2022-03-06 12:36] LABS: Add Urine Microscopic? NO
[2022-03-06 12:38] LABS: Alanine Aminotransferase 49 U/L (6-50); Alkaline Phosphatase 59 U/L (38-126); Aspartate Amino Transferase 33 U/L (17-59); Bilirubin,Total 0.2 mg/dL (0.2-1.3); Lipase 129 U/L (23-300)
== END 2022-03-06 10:58 | disposition home or self-care (01) ==
PROVIDERS: PCP Family Medicine Adolescent Medicine; Visit Provider Surgery
DX: R10.9 Unspecified abdominal pain (principal); Z90.49 Acquired absence of other specified parts of digestive tract; K76.0 Fatty (change of) liver, not elsewhere classified
CPT/HCPCS: 36415; 74178; 80076; 81003; 83690; 85025; Q9967

== ENCOUNTER 2022-05-25 14:47 | Emergency (ER) | payer OTHER, BC, MEDICAID, SELFPAY ==
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
[2022-05-25 15:10] VITALS: BP 133/68; PULSE 84; RESP 16; TEMP 36.3; O2SAT 99
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
[2022-05-25 18:17] LABS: Basophils Absolute Auto 0.1 K/mm3 (0.0-0.1); Basophils Percent Auto 0.5 % (0.2-1.2); Eosinophils Absolute Auto 0.4 K/mm3 (0-0.3); Eosinophils Percent Auto 4.1 % (0-4.4); Hematocrit 41.3 % (42.0-52.0); Hemoglobin 14.8 g/dL (14.0-18.0); Immature Granulocyte Absolute 0.03 K/mm3 (0.00-0.031); Immature Granulocyte Percent A 0.3 % (0-0.5); Lymphocytes Absolute Auto 2.51 K/mm3 (0.9-3.2); Lymphocytes Percent Auto 23.6 % (18.3-44.2); Mean Corpuscular HGB Conc 35.8 g/dl (32-36); Mean Corpuscular Hemoglobin 30.4 pg (26-34); Mean Corpuscular Volume 84.8 fl (80-100); Mean Platelet Volume 9.9 fl (7.4-10.4); Monocytes Absolute Auto 0.6 K/mm3 (0.1-0.6); Monocytes Percent Auto 5.7 % (2.6-8.5); Neutrophils Percent Auto 65.8 % (45.5-73.1); Platelet Count Result 288 k/mm3 (150-375); Red Blood Count 4.87 M/mm3 (4.6-6.20); Red Cell Distribution Width 12.4 % (11.5-14.5); White Blood Count 10.7 K/mm3 (4.5-10.0)
[2022-05-25 18:18] LABS: Appearance Urine Clear (Clear); Bilirubin Urine 1+ (Negative); Blood Urine Negative (Negative); Color Urine Yellow (Yellow); Glucose Urine UA Negative (Negative); Ketones Urine Trace mg/dL (Negative); Leukocyte Esterase Ur Negative LEU/UL (Negative); Nitrate Urine Negative (Negative); Protein Urine Negative (Negative); Specific Grav Ur >= 1.030 (1.001-1.035); pH Urine 5.5 (5.0-9.0)
[2022-05-25 18:24] LABS: Mucus Urine Heavy /lpf; RBC Urine 0-2 /hpf (0-2); Squamous Epithelial Cell Urine Rare /hpf (Few); WBC Urine 0-3 /hpf
[2022-05-25 18:25] LABS: Add Urine Microscopic? YES
[2022-05-25 18:32] LABS: Alanine Aminotransferase 36 U/L (6-50); Albumin Level 4.6 g/dL (3.5-5.1); Alkaline Phosphatase 70 U/L (38-126); Anion Gap 14 mmol/L (8-16); Aspartate Amino Transferase 30 U/L (17-59); Bilirubin,Total 0.4 mg/dL (0.2-1.3); Blood Urea Nitrogen 10 mg/dL (9-20); Carbon Dioxide 29 mmol/L (22-30); Chloride 100 mmol/L (98-107); Estimated CRCL calculation 129 ml/min; Estimated Glomerular Filt Rate > 60; Glucose 82 mg/dL (65-110); Lipase 115 U/L (23-300); Potassium 3.3 mmol/L (3.4-5.0); Sodium 143 mmol/L (137-145)
[2022-05-25 18:40] LABS: Estimated CRCL calculation 143 ml/min; Estimated Glomerular Filt Rate > 60
[2022-05-25] MEDS: KETOROLAC 30 MG/ML VIAL (*BKC) IV PUSH (19:09)
[2022-05-25] MEDS: POTASSIUM CHLORIDE 20 MEQ TABLET 40 MEQ PO (19:10)
== END 2022-05-25 19:22 | disposition home or self-care (01) ==
PROVIDERS: Physician Assistant; Emergency Provider Emergency Medicine; PCP Family Medicine Adolescent Medicine
DX: S39.91XA Unspecified injury of abdomen, initial encounter (principal); S63.502A Unspecified sprain of left wrist, initial encounter; E66.9 Obesity, unspecified; Z68.31 Body mass index [BMI] 31.0-31.9, adult; F17.210 Nicotine dependence, cigarettes, uncomplicated; K76.0 Fatty (change of) liver, not elsewhere classified; K57.90 Diverticulosis of intestine, part unspecified, without perforation or abscess without bleeding; V18.4XXA Pedal cycle driver injured in noncollision transport accident in traffic accident, initial encounter; Y93.55 Activity, bike riding
CPT/HCPCS: 36415; 73110; 74177; 80053; 81001; 83690; 85025; 96374; 99284; A9270; J1885; Q9967

== ENCOUNTER 2024-09-13 04:17 | Emergency (ER) | payer BC, SELFPAY ==
[2024-09-13 04:18] VITALS: BP 156/97; PULSE 91; RESP 19; TEMP 36.1; O2SAT 98
[2024-09-13 04:39] VITALS: BP 143/96; PULSE 89; RESP 15; O2SAT 98
[2024-09-13] MEDS: SODIUM CHLORIDE 0.9% IV 1,000 ML 999 ML IV CONT (05:07)
[2024-09-13] MEDS: diphenhydrAMINE HCl INJ 50 MG/ML VIAL IV PUSH (05:08)
[2024-09-13] MEDS: KETOROLAC 30 MG/ML VIAL (*BKC) IV PUSH (05:08)
--- NOTE | 2024-09-13 05:11 | ED_ITS ---
HPI - General Adult General Chief complaint: Headache Stated complaint: LU, Jaw pain Time Seen by Provider: 09/13/24 04:43 History of Present Illness HPI narrative: Patient is a 24 old gentleman presents emergency department with chief complaint headache and dental pain. Patient states that today he started having pain in the right side of his head the patient reports that he also has had some cracked teeth particularly his posterior molar on the right upper portion of his mouth patient denies purulent drainage denies trismus Related Data Allergies Allergy/AdvReac Type Severity Reaction Status Date / Time No Known Allergies Allergy Verified 09/13/24 04:18 Review of Systems Review of Systems: A 10 system review of systems was completed on the patient and is negative except for what is stated in the HPI. Nursing and ancillary documentation was reviewed. [facility] [place] Past Medical History Medical History Obesity (BMI 30-39.9) Tobacco use Surgical History Surgical History History of cholecystectomy (01/2022) Family History Family History Grandparent Cancer Lupus Social History Social History Smoking packs per day: 0.4 Smoking cigarettes per day: 8.0 Years smoked: 1.5 Smoking pack-years: 0.60 Smoking status: Current every day smoker Tobacco type: cigarettes Second hand tobacco smoke exposure: No Alcohol intake: never Substance use: current Substance use type: marijuana Living arrangements: alone Occupation/Education: occupation Gender identity (if verbalized by the patient): Male Spiritual care concerns: No Agree to blood products: Yes Exam Narrative: GENERAL: Well-appearing, well-nourished, and in no acute distress. HEAD: Normocephalic, atraumatic. EYES: PERRLA and EOMI. ENT: Nares clear, no rhinorrhea or epistaxis. Mucous membranes moist. There is gross decay of the posterior molar on the right axillary side NECK: Supple. CHEST: Clear to auscultation. No respiratory distress. HEART: Regular rate and rhythm. No murmur heard. Normal peripheral pulses. ABDOMEN: Soft, nontender, nondistended, normal active bowel sounds. EXTREMITIES: Normal range of motion. No edema. SKIN: Warm, dry, no rash. NEURO: No focal deficits. Alert and oriented x3. PSYCH: Normal mood and affect. Course Vital Signs Vital signs: Vital Signs Temperature 36.1 C L 09/13/24 04:18 Pulse Rate 91 09/13/24 04:18 Respiratory Rate 19 09/13/24 04:18 Blood Pressure 156/97 H 09/13/24 04:18 Pulse Oximetry 98 09/13/24 04:18 Oxygen Delivery Room Air 09/13/24 04:18 Temperature 36.1 C L 09/13/24 04:18 Pulse Rate 89 09/13/24 04:39 Respiratory Rate 15 09/13/24 04:39 Blood Pressure 143/96 H 09/13/24 04:39 Pulse Oximetry 98 09/13/24 04:39 Oxygen Delivery Room Air 09/13/24 04:18 Medical Decision Making Vital Signs Vital Signs: Vital Signs Temperature 36.1 C L 09/13/24 04:18 Pulse Rate 91 09/13/24 04:18 Respiratory Rate 19 09/13/24 04:18 Blood Pressure 156/97 H 09/13/24 04:18 Pulse Oximetry 98 09/13/24 04:18 Oxygen Delivery Room Air 09/13/24 04:18 Temperature 36.1 C L 09/13/24 04:18 Pulse Rate 89 09/13/24 04:39 Respiratory Rate 15 09/13/24 04:39 Blood Pressure 143/96 H 09/13/24 04:39 Pulse Oximetry 98 09/13/24 04:39 Oxygen Delivery Room Air 09/13/24 04:18 Lab Data Labs: Lab Results 09/13/24 Range/Units 04:25 Influenza A (RT-PCR) Negative (Negative) Influenza B (RT-PCR) Negative (Negative) RSV (RT-PCR) Negative (Negative) SARS-CoV-2 RNA (RT-PCR) Negative (Negative) Discharge Plan Discharge Clinical Impression: Headache, Dental caries Instructions: Acute Headache (ED), Toothache (ED) Patient Language: Malay Prescriptions: New amoxicillin 500 mg capsule 500 mg PO Q12H Qty: 20 0RF Follow-up/Referrals: Piotr Hogan MD [Primary Care Provider] - Stand Alone Forms: Work/School Release IP Time of Disposition: 06:07
[2024-09-13] MEDS: PROCHLORPERAZINE EDISYLATE 10 MG/2 ML VIAL IV PUSH (05:12)
[2024-09-13 05:13] LABS: Influenza A QL RT-PCR Negative (Negative); Influenza B QL RT-PCR Negative (Negative); RSV RNA, RT-PCR Negative (Negative); SARS-CoV-2 RNA PCR Negative (Negative)
[2024-09-13 06:13] VITALS: BP 136/88; PULSE 82; RESP 16; O2SAT 99
[2024-09-13 06:14] VITALS: BP 136/88; PULSE 82; RESP 16; O2SAT 99
== END 2024-09-13 06:15 | disposition home or self-care (01) ==
PROVIDERS: Emergency Provider Emergency Medicine; PCP Family Medicine Adolescent Medicine
DX: R51.9 Headache, unspecified (principal); K02.9 Dental caries, unspecified; Z20.822 Contact with and (suspected) exposure to COVID-19; F17.210 Nicotine dependence, cigarettes, uncomplicated
CPT/HCPCS: 87637; 96361; 96374; 96375; 99284; J0780; J1200; J1885; J7030

== ENCOUNTER 2024-10-02 20:39 | Emergency (ER) | payer BC, SELFPAY ==
[2024-10-02 21:03] VITALS: BP 156/79; PULSE 96; RESP 14; TEMP 37; O2SAT 100
--- NOTE | 2024-10-02 21:17 | ED.NAVMDI ---
HPI - Nausea/Vomiting/Diarrhea General Chief complaint: Nausea/Vomiting/Diarrhea Stated complaint: vomiting Time Seen by Provider: 10/02/24 21:14 History of Present Illness HPI Narrative: 24-year-old male presents emergency department for a work note. Patient states he woke up this morning with nausea and vomiting after eating too much food yesterday. He states he missed work due to the nausea/vomiting. His symptoms have resolved and he states he feels in his normal state of health. He has no abdominal pain, no nausea, no diarrhea, no fevers. Last bowel movement was today and normal. He has no complaints. Related Data Allergies Allergy/AdvReac Type Severity Reaction Status Date / Time No Known Allergies Allergy Verified 10/02/24 21:08 Review of Systems Review of Systems: All systems reviewed & are unremarkable except as noted in HPI and below PMFSH Past Medical History Medical History Obesity (BMI 30-39.9) Tobacco use Surgical History Surgical History History of cholecystectomy (01/2022) Family History Family History Grandparent Cancer Lupus Social History Social History Smoking packs per day: 0.4 Smoking cigarettes per day: 8.0 Years smoked: 1.5 Smoking pack-years: 0.60 Smoking status: Current every day smoker Tobacco type: cigarettes Second hand tobacco smoke exposure: No Alcohol intake: never Substance use: current Substance use type: marijuana Living arrangements: alone Occupation/Education: occupation Gender identity (if verbalized by the patient): Male Spiritual care concerns: No Agree to blood products: Yes Exam Narrative: GENERAL: Well-appearing, well-nourished, and in no acute distress. HEAD: Normocephalic, atraumatic. EYES: EOMI. ENT: Nares clear, no rhinorrhea or epistaxis. Mucous membranes moist. NECK: Supple. CHEST: Clear to auscultation. No respiratory distress. HEART: Regular rate and rhythm. No murmur heard. Normal peripheral pulses. ABDOMEN: Soft, nontender, nondistended, normal active bowel sounds. EXTREMITIES: Normal range of motion. No edema. SKIN: Warm, dry, no rash. NEURO: No focal deficits. Alert and oriented x3 Course Vital Signs Vital signs: Vital Signs Temperature 98.6 F 10/02/24 21:03 Pulse Rate 96 10/02/24 21:03 Respiratory Rate 14 10/02/24 21:03 Blood Pressure 156/79 H 10/02/24 21:03 Pulse Oximetry 100 10/02/24 21:03 Oxygen Delivery Room Air 10/02/24 21:03 Temperature 98.6 F 10/02/24 21:03 Pulse Rate 96 10/02/24 21:03 Respiratory Rate 14 10/02/24 21:03 Blood Pressure 156/79 H 10/02/24 21:03 Pulse Oximetry 100 10/02/24 21:03 Oxygen Delivery Room Air 10/02/24 21:03 MDM - Nausea/Vomiting/Diarrhea MDM Narrative Medical decision making narrative: 24-year-old male presents emergency department for workup. Patient is work today due to nausea and vomiting. Symptoms have since resolved. He has no complaints. States he needs a note to return to work. Vitals with elevated blood pressure otherwise unremarkable. Abdomen is soft and nontender. No further workup required. Patient given workup return precautions. Discharge Plan Discharge Clinical Impression: Encounter to obtain excuse from work Patient Disposition: Home, Self-Care Condition: Stable Instructions: Antibiotic Form, Acute Nausea and Vomiting (ED) Additional Instructions: Please drink plenty of fluids. Return to the emergency department develop new or worsening symptoms. Patient Language: Armenian Prescriptions: No Action amoxicillin 500 mg capsule 500 mg PO Q12H Qty: 20 0RF Follow-up/Referrals: Piotr Hogan MD [Primary Care Provider] - Stand Alone Forms: Work/School Release IP
[2024-10-02 22:57] VITALS: BP 117/76; PULSE 68; RESP 16; O2SAT 98
== END 2024-10-02 22:58 | disposition home or self-care (01) ==
PROVIDERS: Emergency Provider Physician Assistant; PCP Family Medicine Adolescent Medicine
DX: Z02.89 Encounter for other administrative examinations (principal); E66.9 Obesity, unspecified; Z68.35 Body mass index [BMI] 35.0-35.9, adult; F17.210 Nicotine dependence, cigarettes, uncomplicated; Z90.49 Acquired absence of other specified parts of digestive tract
CPT/HCPCS: 99281

== ENCOUNTER 2024-10-20 15:21 | Emergency (ER) | payer BC, SELFPAY ==
--- NOTE | ~2024-10-20 | CT_ITS ---
CT abdomen pelvis w con Ordering provider: Katerina Lino PA-C History: 24 years Male with . abd pain, N/V . Comparison: May 25, 2022 Technique: CT abdomen and pelvis with IV and without oral contrast. Automated exposure control and it erative reconstruction technique were employed. The dose-length product was 1180.85 mGy-cm. 100 mL Om nipaque 350 was given IV. Findings: VISUALIZED LOWER CHEST: Normal. UPPER ABDOMINAL ORGANS: Liver: Fat infiltration Gallbladder: Status post cholecystectomy. Spleen: Normal. Stomach/duodenum: Normal. Pancreas: Normal. Adrenals: Normal. Kidneys: Normal. PELVIC ORGANS: The bladder is underfilled.: BOWEL AND MESENTERY: Colon: No evidence of diverticulitis. Normal appendix. Small Bowel: Normal. No obstruction. Peritoneum/mesentery: No free air or free fluid. No mesenteric lymphadenopathy. RETROPERITONEUM: Normal aorta. No retroperitoneal lymphadenopathy. MUSCULOSKELETAL: Superficial soft tissues: Slightly enlarged inguinal lymph nodes. Otherwise, The superficial soft tis sues are normal. Bones: Normal spine. IMPRESSION: 1. No evidence of appendicitis, diverticulitis or intestinal obstruction. 2. Mild fat infiltration. Reviewed, dictated and finalized at location A.
[2024-10-20 15:30] VITALS: BP 148/87; PULSE 78; RESP 16; TEMP 36.3; O2SAT 100
[2024-10-20 16:10] LABS: Basophils Absolute Auto 0.1 K/mm3 (0.0-0.1); Basophils Percent Auto 0.7 % (0.2-1.2); Eosinophils Absolute Auto 2.2 K/mm3 (0-0.3); Eosinophils Percent Auto 20.1 % (0-4.4); Hematocrit 45.1 % (42.0-52.0); Immature Granulocyte Absolute 0.02 K/mm3 (0.00-0.031); Immature Granulocyte Percent A 0.2 % (0-0.5); Lymphocytes Absolute Auto 1.79 K/mm3 (0.9-3.2); Lymphocytes Percent Auto 16.7 % (18.3-44.2); Mean Corpuscular HGB Conc 35.5 g/dl (32-36); Mean Corpuscular Hemoglobin 29.4 pg (26-34); Mean Corpuscular Volume 82.8 fl (80-100); Mean Platelet Volume 9.8 fl (7.4-10.4); Monocytes Absolute Auto 0.5 K/mm3 (0.1-0.6); Monocytes Percent Auto 4.6 % (2.6-8.5); Neutrophils Absolute Auto 6.2 K/mm3 (1.3-6.7); Neutrophils Percent Auto 57.7 % (45.5-73.1); Platelet Count Result 270 k/mm3 (150-375); Red Blood Count 5.45 M/mm3 (4.6-6.20); Red Cell Distribution Width 12.1 % (11.5-14.5); White Blood Count 10.7 K/mm3 (4.5-10.0)
[2024-10-20 16:25] LABS: Alanine Aminotransferase 48 U/L (6-50); Albumin Level 4.7 g/dL (3.5-5.1); Alkaline Phosphatase 70 U/L (38-126); Anion Gap 10 mmol/L (4-12); Aspartate Amino Transferase 33 U/L (17-59); Bilirubin,Total 0.7 mg/dL (0.2-1.3); Blood Urea Nitrogen 11 mg/dL (9-20); Calcium 9.5 mg/dL (8.4-10.2); Carbon Dioxide 24 mmol/L (22-30); Chloride 107 mmol/L (98-107); Estimated CRCL calculation 155 ml/min; Estimated Glomerular Filt Rate > 60; Glucose 115 mg/dL (65-110); Lipase 48 U/L (23-300); Potassium 4.1 mmol/L (3.4-5.0); Sodium 141 mmol/L (137-145)
--- NOTE | 2024-10-20 16:38 | ED_ITS ---
HPI - Abdominal Pain General Chief Complaint: Abdominal Pain <Katerina Lino PA-C - Last Filed: 10/20/24 17:26> Stated Complaint: Abd bloating , N/V/D <Katerina Lino PA-C - Last Filed: 10/20/24 17:26> Time Seen by Provider: 10/20/24 16:38 <KURTIS Conteh Last Filed: 10/20/24 17:26> Focused HPI: Patient is a 24-year-old male who presents the ED with report of abdominal pain, nausea, vomiting. Patient reports he has been having intermittent episodes of abdominal pain associated with nausea vomiting, abdominal bloating for the past 1 month. Was seen in the ED here in September and had reassuring blood work. Did not have imaging of his abdomen at that time. Reports symptoms began again last night in he had multiple episodes of emesis. Also reports having persistent watery diarrhea over the past 1 week. Denies fevers. GENERAL: Well-appearing, obese with BMI of 34.6, and in no acute distress. HEAD: Normocephalic, atraumatic. CHEST: Clear to auscultation. ?No respiratory distress. HEART: Regular rate and rhythm.? ABD: No significant focal tenderness throughout abdomen. NEURO: ?Alert and oriented x3. Patient screened in triage and initial orders placed.? ?Additional care and disposition to be based upon?diagnostic testing and treatment. <Katerina Lino PA-C - Last Filed: 10/20/24 17:26> Source: patient <KURTIS Conteh Last Filed: 10/20/24 17:26> Mode of arrival: ambulatory <KURTIS Conteh Last Filed: 10/20/24 17:26> Limitations: no limitations <KURTIS Conteh Last Filed: 10/20/24 17:26> History of Present Illness HPI narrative: Agree with the above triage note the following additions/addendum. Patient states his symptoms started yesterday after eating fatty pork. He has been dealing with intermittent abdominal bloating/pain, nausea and vomiting for the past month and half. He also endorses increased belching with his symptoms. He cannot identify any aggravating or alleviating factors. He denies alcohol or drug use, denies marijuana use. He does endorse a prior history of cholecystectomy, no other prior abdominal surgeries. At the time of my evaluation the patient states he is asymptomatic, has been without symptoms for 5 hours. Denies current abdominal pain, nausea, vomiting. <Martha Jin PA-C - Last Filed: 10/20/24 22:31> Related Data Allergies/Adverse Reactions: Allergies Allergy/AdvReac Type Severity Reaction Status Date / Time No Known Allergies Allergy Verified 10/20/24 15:22 <Katerina Lino PA-C - Last Filed: 10/20/24 17:26> Review of Systems 2 Review of Systems: All systems reviewed & are unremarkable except as noted in HPI and below <Martha Jin PA-C - Last Filed: 10/20/24 22:31> PMFSH Past Medical History Medical History: Medical History Obesity (BMI 30-39.9) Tobacco use <Katerina Lino PA-C - Last Filed: 10/20/24 17:26> Surgical History Surgical History: Surgical History History of cholecystectomy (01/2022) <Katerina Lino PA-C - Last Filed: 10/20/24 17:26> Family History Family History: Family History Grandparent Cancer Lupus <Katerina Lino PA-C - Last Filed: 10/20/24 17:26> Social History Social History: Social History Smoking packs per day: 0.4 Smoking cigarettes per day: 8.0 Years smoked: 1.5 Smoking pack-years: 0.60 Smoking status: Current every day smoker Tobacco type: cigarettes Second hand tobacco smoke exposure: No Alcohol intake: never Substance use: current Substance use type: marijuana Living arrangements: alone Occupation/Education: occupation Gender identity (if verbalized by the patient): Male Spiritual care concerns: No Agree to blood products: Yes <KURTIS Conteh Last Filed: 10/20/24 17:26> Exam 2 Narrative: GENERAL: Well-appearing, well-nourished, and in no acute distress. HEAD: Normocephalic, atraumatic. EYES: EOMI. ENT: Nares clear, no rhinorrhea or epistaxis. Mucous membranes moist. NECK: Supple. CHEST: Clear to auscultation. No respiratory distress. HEART: Regular rate and rhythm. No murmur heard. Normal peripheral pulses. ABDOMEN: Soft, nontender, nondistended, normal active bowel sounds. No rebound, guarding or rigidity. No CVA tenderness EXTREMITIES: Normal range of motion. No edema. SKIN: Warm, dry, no rash. NEURO: No focal deficits. Alert and oriented x3 <KURTIS Headley Last Filed: 10/20/24 22:31> Course Vital Signs Vital signs: Vital Signs Temperature 97.4 F L 10/20/24 15:30 Pulse Rate 78 10/20/24 15:30 Respiratory Rate 16 10/20/24 15:30 Blood Pressure 148/87 H 10/20/24 15:30 Pulse Oximetry 100 10/20/24 15:30 Oxygen Delivery Room Air 10/20/24 15:30 Temperature 97.4 F L 10/20/24 15:30 Pulse Rate 87 10/20/24 21:59 Respiratory Rate 20 10/20/24 21:59 Blood Pressure 149/99 H 10/20/24 21:59 Pulse Oximetry 100 10/20/24 21:59 Oxygen Delivery Room Air 10/20/24 15:30 <KURTIS Conteh Last Filed: 10/20/24 17:26> Vital Signs Temperature 97.4 F L 10/20/24 15:30 Pulse Rate 78 10/20/24 15:30 Respiratory Rate 16 10/20/24 15:30 Blood Pressure 148/87 H 10/20/24 15:30 Pulse Oximetry 100 10/20/24 15:30 Oxygen Delivery Room Air 10/20/24 15:30 Temperature 97.4 F L 10/20/24 15:30 Pulse Rate 87 10/20/24 21:59 Respiratory Rate 20 10/20/24 21:59 Blood Pressure 149/99 H 10/20/24 21:59 Pulse Oximetry 100 10/20/24 21:59 Oxygen Delivery Room Air 10/20/24 15:30 <Martha Jin PA-C - Last Filed: 10/20/24 22:31> MDM - Abdominal Pain MDM Narrative Medical decision making narrative: MSE by ALY in triage. <Katerina Lino PA-C - Last Filed: 10/20/24 17:26> MSE by ALY in triage. 24-year-old male presents to the emergency department for abdominal pain/bloating, nausea and vomiting that started yesterday at 11:00 p.m. after eating fatty pork. Symptoms persisted to today. Patient has been having intermittent abdominal bloating, N/V for the past month and half. Vitals are stable. Patient is afebrile and nontoxic appearing. At the time of my evaluation the patient is asymptomatic. Abdomen is soft and nontender. Lab work and CT abdomen pelvis obtained in triage shows mild leukocytosis of 10.7, unremarkable chemistries, trace ketones in urine with no UTI. Lipase is within normal limits. CT abdomen pelvis shows no evidence of appendicitis, diverticulitis or intestinal obstruction. There is mild fat infiltration of the liver. Patient was updated on results. He is tolerating p.o. intake. Differential diagnosis includes IBS, IBD, gastritis, and other. Will prescribe Pepcid, Bentyl and Zofran for symptomatic control and provide GI follow-up given duration of symptoms. 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 Discussed strict ED return precautions. He is agreeable with the plan verbalized understanding. Discharged in stable condition. <Martha Jin PA-C - Last Filed: 10/20/24 22:31> Differential Diagnosis Differential diagnosis: Likely abdominal pain, acute appendicitis, constipation, diverticulitis, gastroenteritis, pancreatitis and small bowel obstruction <Martha Jin PA-C - Last Filed: 10/20/24 22:31> Lab Data Result diagrams: 10/20/24 15:59 10/20/24 15:59 <GLORIA ContehC - Last Filed: 10/20/24 17:26> Labs: Lab Results 10/20/24 Range/Units 15:59 WBC 10.7 H (4.5-10.0) K/mm3 RBC 5.45 (4.6-6.20) M/mm3 Hgb 16.0 (14.0-18.0) g/dL Hct 45.1 (42.0-52.0) % MCV 82.8 (80-100) fl MCH 29.4 (26-34) pg MCHC 35.5 (32-36) g/dl RDW 12.1 (11.5-14.5) % Plt Count 270 (150-375) k/mm3 MPV 9.8 (7.4-10.4) fl Immature Gran % (Auto) 0.2 (0-0.5) % Neut % (Auto) 57.7 (45.5-73.1) % Lymph % (Auto) 16.7 L (18.3-44.2) % [place] % (Auto) 4.6 (2.6-8.5) % Eos % (Auto) 20.1 H (0-4.4) % Baso % (Auto) 0.7 (0.2-1.2) % Lymph # (Auto) 1.79 (0.9-3.2) K/mm3 [place] # (Auto) 0.5 (0.1-0.6) K/mm3 Eos # (Auto) 2.2 H (0-0.3) K/mm3 Baso # (Auto) 0.1 (0.0-0.1) K/mm3 Abs Immat Gran (auto) 0.02 (0.00-0.031) K/mm3 Absolute Neuts (auto) 6.2 (1.3-6.7) K/mm3 Absolute Nucleated RBC 0.000 (0.0-0.012) K/mm3 Nucleated RBC % 0.0 (0.0-0.2) % Sodium 141 (137-145) mmol/L Potassium 4.1 (3.4-5.0) mmol/L Chloride 107 (98-107) mmol/L Carbon Dioxide 24 (22-30) mmol/L Anion Gap 10 (4-12) mmol/L BUN 11 (9-20) mg/dL Creatinine 0.87 (0.7-1.3) mg/dL Estim Creat Clear Calc 155 ml/min Estimated GFR > 60 (59 - ) Glucose 115 H (65-110) mg/dL Calcium 9.5 (8.4-10.2) mg/dL Total Bilirubin 0.7 (0.2-1.3) mg/dL AST 33 (17-59) U/L ALT 48 (6-50) U/L Alkaline Phosphatase 70 (38-126) U/L Total Protein 8.0 (6.3-8.2) g/dL Albumin 4.7 (3.5-5.1) g/dL Lipase 48 (23-300) U/L Urine Color Dark yellow (Yellow) Urine Appearance Clear (Clear) Urine pH 5.5 (5.0-9.0) Ur Specific [place] 1.034 (1.001-1.035) Urine Protein Trace (Negative) mg/dL Urine Glucose (UA) Negative (Negative) mg/dL Urine Ketones Trace H (Negative) mg/dL Ur Blood (Man) Negative (Negative) Urine Nitrate Negative (Negative) Urine Bilirubin Negative (Negative) Urine Urobilinogen 1.0 (<2.0) mg/dL Add Ur Microanalysis Reviewed Leukocyte Esterase Rfl Negative (Negative) CHACHA/UL Urine RBC 0-2 (0-2) /hpf Urine WBC 0-5 (0-3) /hpf Ur Squamous Epith Cells None seen (Few) /hpf Urine Bacteria None seen /hpf Urine Casts 0-2 Urine Mucus Present /lpf <Katerina Lino PA-C - Last Filed: 10/20/24 17:26> Lab Results 10/20/24 Range/Units 15:59 WBC 10.7 H (4.5-10.0) K/mm3 RBC 5.45 (4.6-6.20) M/mm3 Hgb 16.0 (14.0-18.0) g/dL Hct 45.1 (42.0-52.0) % MCV 82.8 (80-100) fl MCH 29.4 (26-34) pg MCHC 35.5 (32-36) g/dl RDW 12.1 (11.5-14.5) % Plt Count 270 (150-375) k/mm3 MPV 9.8 (7.4-10.4) fl Immature Gran % (Auto) 0.2 (0-0.5) % Neut % (Auto) 57.7 (45.5-73.1) % Lymph % (Auto) 16.7 L (18.3-44.2) % [place] % (Auto) 4.6 (2.6-8.5) % Eos % (Auto) 20.1 H (0-4.4) % Baso % (Auto) 0.7 (0.2-1.2) % Lymph # (Auto) 1.79 (0.9-3.2) K/mm3 [place] # (Auto) 0.5 (0.1-0.6) K/mm3 Eos # (Auto) 2.2 H (0-0.3) K/mm3 Baso # (Auto) 0.1 (0.0-0.1) K/mm3 Abs Immat Gran (auto) 0.02 (0.00-0.031) K/mm3 Absolute Neuts (auto) 6.2 (1.3-6.7) K/mm3 Absolute Nucleated RBC 0.000 (0.0-0.012) K/mm3 Nucleated RBC % 0.0 (0.0-0.2) % Sodium 141 (137-145) mmol/L Potassium 4.1 (3.4-5.0) mmol/L Chloride 107 (98-107) mmol/L Carbon Dioxide 24 (22-30) mmol/L Anion Gap 10 (4-12) mmol/L BUN 11 (9-20) mg/dL Creatinine 0.87 (0.7-1.3) mg/dL Estim Creat Clear Calc 155 ml/min Estimated GFR > 60 (59 - ) Glucose 115 H (65-110) mg/dL Calcium 9.5 (8.4-10.2) mg/dL Total Bilirubin 0.7 (0.2-1.3) mg/dL AST 33 (17-59) U/L ALT 48 (6-50) U/L Alkaline Phosphatase 70 (38-126) U/L Total Protein 8.0 (6.3-8.2) g/dL Albumin 4.7 (3.5-5.1) g/dL Lipase 48 (23-300) U/L Urine Color Dark yellow (Yellow) Urine Appearance Clear (Clear) Urine pH 5.5 (5.0-9.0) Ur Specific [place] 1.034 (1.001-1.035) Urine Protein Trace (Negative) mg/dL Urine Glucose (UA) Negative (Negative) mg/dL Urine Ketones Trace H (Negative) mg/dL Ur Blood (Man) Negative (Negative) Urine Nitrate Negative (Negative) Urine Bilirubin Negative (Negative) Urine Urobilinogen 1.0 (<2.0) mg/dL Add Ur Microanalysis Reviewed Leukocyte Esterase Rfl Negative (Negative) CHACHA/UL Urine RBC 0-2 (0-2) /hpf Urine WBC 0-5 (0-3) /hpf Ur Squamous Epith Cells None seen (Few) /hpf Urine Bacteria None seen /hpf Urine Casts 0-2 Urine Mucus Present /lpf <KURTIS Headley Last Filed: 10/20/24 22:31> Imaging Data Radiologist's impression: ITS Impressions Abdomen/Pelvis CT 10/20/24 18:57 IMPRESSION: 1. No evidence of appendicitis, diverticulitis or intestinal obstruction. 2. Mild fat infiltration. <KURTIS Conteh Last Filed: 10/20/24 17:26> ITS Impressions Abdomen/Pelvis CT 10/20/24 18:57 IMPRESSION: 1. No evidence of appendicitis, diverticulitis or intestinal obstruction. 2. Mild fat infiltration. <KURTIS Headley Last Filed: 10/20/24 22:31> Discharge Plan Discharge Clinical Impression: Gastroenteritis, Hepatic steatosis <KURTIS Conteh Last Filed: 10/20/24 17:26> Patient Disposition: Home <KURTIS Conteh Last Filed: 10/20/24 17:26> Condition: Stable <KURTIS Conteh Last Filed: 10/20/24 17:26> Instructions: Antibiotic Form, Gastroenteritis (DC), Non-Alcoholic Fatty Liver Disease (ED) <KURTIS Conteh Last Filed: 10/20/24 17:26> Additional Instructions: You were evaluated in the emergency department for abdominal bloating, nausea and vomiting. Your workup here shows fatty infiltration of your liver. He has no other acute findings. Please make sure your hydrating well with water, Gatorade Pedialyte. Take the famotidine as needed for belching and heartburn, ondansetron as needed for nausea and vomiting, Bentyl as needed for abdominal cramping. Please follow-up closely with the GI specialist. Also follow-up with her PCP regarding the fatty liver you will need further workup and possible outpatient ultrasound. Please eat a bland diet. Return to the emergency department if you develop a fever, you are unable to tolerate food or fluids, you develop new or worsening abdominal pain, or other concerning symptoms. <Katerina Lino PA-C - Last Filed: 10/20/24 17:26> Patient Language: Serbian <Katerina Lino PA-C - Last Filed: 10/20/24 17:26> Prescriptions: New ondansetron 4 mg tablet,disintegrating 4 mg PO Q8H Qty: 14 0RF dicyclomine 20 mg tablet 20 mg PO BID Qty: 14 0RF famotidine 20 mg tablet 20 mg PO DAILY Qty: 20 0RF No Action amoxicillin 500 mg capsule 500 mg PO Q12H Qty: 20 0RF <Katerina Lino PA-C - Last Filed: 10/20/24 17:26> Follow-up/Referrals: Sonido Messina MD [Physician] - Piotr Hogan MD [Primary Care Provider] - <Katerina Lino PA-C - Last Filed: 10/20/24 17:26>
[2024-10-20 17:04] LABS: Add Urine Microscopic? YES; Appearance Urine Clear (Clear); Bacteria Urine None Seen /hpf; Bilirubin Urine Negative (Negative); Blood Urine Negative (Negative); Color Urine Dark Yellow (Yellow); Glucose Urine UA Negative (Negative); Ketones Urine Trace mg/dL (Negative); Leukocyte Esterase Ur Negative LEU/UL (Negative); Mucus Urine Present /lpf; Need Manual Microscopic Reviewed; Nitrate Urine Negative (Negative); Non Pathogenic Casts 0-2; Protein Urine Trace mg/dL (Negative); RBC Urine 0-2 /hpf (0-2); Specific Grav Ur 1.034 (1.001-1.035); Squamous Epithelial Cell Urine None Seen /hpf (Few); WBC Urine 0-5 /hpf (0-3); pH Urine 5.5 (5.0-9.0)
[2024-10-20 21:02] VITALS: BP 144/93; PULSE 76; RESP 18; O2SAT 100
[2024-10-20 21:59] VITALS: BP 149/99; PULSE 87; RESP 20; O2SAT 100
[2024-10-20 22:55] VITALS: BP 130/99; PULSE 70; RESP 20; TEMP 36.8; O2SAT 100
== END 2024-10-20 23:00 | disposition home or self-care (01) ==
PROVIDERS: Physician Assistant; Emergency Provider Physician Assistant; PCP Family Medicine Adolescent Medicine
DX: K52.9 Noninfective gastroenteritis and colitis, unspecified (principal); K76.0 Fatty (change of) liver, not elsewhere classified; E66.9 Obesity, unspecified; Z68.34 Body mass index [BMI] 34.0-34.9, adult; F17.210 Nicotine dependence, cigarettes, uncomplicated; Z90.49 Acquired absence of other specified parts of digestive tract
CPT/HCPCS: 36415; 74177; 80053; 81001; 83690; 85025; 99284; Q9967

== ENCOUNTER 2024-12-05 15:34 | Emergency (ER) | payer BC, SELFPAY ==
--- NOTE | ~2024-12-05 | XR_ITS ---
XR hand RT min 3V Ordering provider: Martha Jin PA-C History: . 4th and 5th digit pain . Comparison: None. FINDINGS: BONES: No acute fracture or dislocation. JOINT SPACES: Normal. SOFT TISSUES: Normal. IMPRESSION: No acute osseous abnormality right hand. Reviewed, dictated and finalized at location A.
--- NOTE | ~2024-12-05 | XR_ITS ---
XR knee LT min 4V Ordering provider: Martha Jin PA-C History: . fall . Comparison: None. FINDINGS: BONES: No acute fracture or dislocation. JOINT SPACES: Normal. SOFT TISSUES: Normal. IMPRESSION: No acute osseous abnormality left knee. Reviewed, dictated and finalized at location A.
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
[2024-12-05 15:39] VITALS: BP 145/85; PULSE 69; RESP 18; TEMP 36.8; O2SAT 100
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
[2024-12-05] MEDS: TETANUS,DIPHTHERIA,AC PERTUSSIS ADULT (0.5 ML) BOOSTRIX IM (17:03)
[2024-12-05] MEDS: ACETAMINOPHEN 500 MG TABLET 1000 MG PO (17:51)
[2024-12-05 17:53] VITALS: BP 137/76; PULSE 67; RESP 17; O2SAT 100
== END 2024-12-05 17:52 | disposition home or self-care (01) ==
PROVIDERS: Emergency Provider Physician Assistant; PCP Family Medicine Adolescent Medicine
DX: S00.81XA Abrasion of other part of head, initial encounter (principal); S83.92XA Sprain of unspecified site of left knee, initial encounter; S63.630A Sprain of interphalangeal joint of right index finger, initial encounter; J35.2 Hypertrophy of adenoids; Z23 Encounter for immunization; E66.9 Obesity, unspecified; Z68.34 Body mass index [BMI] 34.0-34.9, adult; F17.210 Nicotine dependence, cigarettes, uncomplicated; Z90.49 Acquired absence of other specified parts of digestive tract; V28.41XA Electric (assisted) bicycle driver injured in noncollision transport accident in traffic accident, initial encounter
CPT/HCPCS: 70450; 73130; 73564; 90471; 90715; 99284; A9270

== ENCOUNTER 2025-02-26 08:41 | Emergency (ER) | payer BC, SELFPAY ==
--- NOTE | 2025-02-26 08:44 | ED_ITS ---
HPI - General Adult General Chief complaint: Back Pain/Injury Stated complaint: Lower Back Pain Time Seen by Provider: 02/26/25 08:43 Source: patient Mode of arrival: ambulatory Limitations: no limitations History of Present Illness HPI narrative: 24-year-old male patient presents to the [facility] with complaints of left lower back pain x2 days. Patient states he was working at [employer] and was lifting some trash and felt some pain to the left lower back at that time. Patient states he is only taking 400 mg of ibuprofen 1 time since incident occurred. Denies any heat or ice to the area. Denies any loss of bowel or bladder control or numbness or tingling down the lower extremities. Related Data Allergies Allergy/AdvReac Type Severity Reaction Status Date / Time No Known Allergies Allergy Verified 12/05/24 15:35 Review of Systems Review of Systems: CONSTITUTIONAL: Denies fever, chills, or sweats. EYES: Denies visual changes, redness, or discharge. ENT: Denies rhinorrhea, congestion, sore throat, or otalgia. CARDIOVASCULAR: Denies chest pain, palpitations, or edema. RESPIRATORY: Denies cough or dyspnea. GASTROINTESTINAL: Denies abdominal pain, nausea, vomiting, or diarrhea. GENITOURINARY: Denies dysuria or hematuria. SKIN: Denies rash or itching. MUSCULOSKELETAL: Positive low back pain, denies joint pain, or myalgia. NEUROLOGIC: Denies headache, numbness, or weakness. PSYCHIATRIC: Denies anxiety or depression. [facility] Past Medical History Medical History Obesity (BMI 30-39.9) Tobacco use Surgical History Surgical History History of cholecystectomy (01/2022) Family History Family History Grandparent Cancer Lupus Social History Social History Smoking packs per day: 0.4 Smoking cigarettes per day: 8.0 Years smoked: 1.5 Smoking pack-years: 0.60 Smoking status: Current every day smoker Tobacco type: cigarettes Second hand tobacco smoke exposure: No Alcohol intake: never Substance use: current Substance use type: marijuana Living arrangements: alone Occupation/Education: occupation Gender identity (if verbalized by the patient): Male Spiritual care concerns: No Agree to blood products: Yes Comments At the time of my signature I agree with nursing past medical history, surgical, social, and family history. There is no relevant family history pertinent to the presenting complaint. Exam Narrative: GENERAL: Well-appearing, well-nourished, and in no acute distress. HEAD: Normocephalic, atraumatic. EYES: PERRLA and EOMI. ENT: Nares clear, no rhinorrhea or epistaxis. Mucous membranes moist. NECK: Supple. No lymphadenopathy CHEST: Clear to auscultation. No respiratory distress. HEART: Regular rate and rhythm. No murmur heard. Normal peripheral pulses. ABDOMEN: Soft, nontender, nondistended, normal active bowel sounds. EXTREMITIES: Normal range of motion. No edema. BACK: Patient is able to ambulated without assistance. Pt is seated on the stretcher in no obvious distress. No surface trauma noted. muscle tenderness to Palpation to the left lower back with obvious spasm or mass to the area. No step-offs or deformity noted to the cervical, thoracic or lumbar spine to firm Palpation at the midline. No CVA tenderness to percussion. No saddle anesthesia. ROM: able to stand erect. Decreased forward flexion to about 15?, unable to do backward extension, normal Lateral bending and rotation without limitation or complaint of pain. Positive straight leg raise to the left side. SKIN: Warm, dry, no rash. NEURO: No focal deficits. Alert and oriented x3. Course Course Level of Care: Express Care Visit Vital Signs Vital signs: Vital Signs Temperature 37.1 C 02/26/25 08:49 Pulse Rate 83 02/26/25 08:49 Respiratory Rate 18 02/26/25 08:49 Blood Pressure 147/82 H 02/26/25 08:49 Pulse Oximetry 97 02/26/25 08:49 Oxygen Delivery Room Air 02/26/25 08:49 Temperature 37.1 C 02/26/25 08:49 Pulse Rate 83 02/26/25 08:49 Respiratory Rate 18 02/26/25 08:49 Blood Pressure 147/82 H 02/26/25 08:49 Pulse Oximetry 97 02/26/25 08:49 Oxygen Delivery Room Air 02/26/25 08:49 Vital signs reviewed.\ The patient has been informed that they may have pre- hypertension or Hypertension based on a BP reading in the department. I recommend that the patient call the primary care provider listed on their discharge instructions or a physician of their choice this week to arrange follow up for further evaluation of possible pre-hypertension or Hypertension Medical Decision Making MDM Narrative Medical decision making narrative: Plan care patient is discharged home with oral muscle relaxers ibuprofen and lidocaine patches to help with the lower back pain. Encouraged patient to notify his employer of his injury so that he can follow up with the Work Comp medical provider for ongoing care. Discussed with patient he may need to get some physical therapy if this does not resolve in the next 4 weeks. Patient verbalized understanding denies any other questions or concerns at this time. Differential Diagnosis Differential Diagnosis: Differential diagnosis: Cervical spine injury, muscle strain, spasm, torticollis, ligament injury, fracture, subluxation. Vital Signs Vital Signs: Vital Signs Temperature 37.1 C 02/26/25 08:49 Pulse Rate 83 02/26/25 08:49 Respiratory Rate 18 02/26/25 08:49 Blood Pressure 147/82 H 02/26/25 08:49 Pulse Oximetry 97 02/26/25 08:49 Oxygen Delivery Room Air 02/26/25 08:49 Temperature 37.1 C 02/26/25 08:49 Pulse Rate 83 02/26/25 08:49 Respiratory Rate 18 02/26/25 08:49 Blood Pressure 147/82 H 02/26/25 08:49 Pulse Oximetry 97 02/26/25 08:49 Oxygen Delivery Room Air 02/26/25 08:49 Critical Care Time Critical Care Time Critical Care Time: No Discharge Plan Discharge Clinical Impression: Lower back pain Qualifiers: Chronicity: acute Back pain laterality: left Sciatica presence: without sciatica Qualified Code(s): M54.50 - Low back pain, unspecified Patient Disposition: Home Condition: Stable Instructions: Antibiotic Form, Low Back Strain (ED), Lower Back Exercises (ED) Additional Instructions: Ice and heat to the area for 20-30 minutes Gentle stretching exercises Gentle massage Caution with lifting, bending, stooping, twisting Avoid pushing, pulling take muscle relaxants as directed--caution drowsiness and no driving or alcohol Anti-inflammatory medicine as directed--take with food He may take the muscle relaxant and anti-inflammatory at the same time Follow-up with your PCP if not improving in 5-7 days Patient Language: Jamaican Prescriptions: New ibuprofen 800 mg tablet 800 mg PO TID PRN (Reason: pain) 10 Days Qty: 30 0RF cyclobenzaprine 10 mg tablet 10 mg PO TID PRN (Reason: muscle spasm) 7 Days Qty: 21 0RF lidocaine 5 % adhesive patch,medicated 2 patch topical DAILY 7 Days Qty: 15 0RF Rx Instructions: leave on most painful area for up to 12 hrs Follow-up/Referrals: Piotr Hogan MD [Primary Care Provider] - Time of Disposition: 09:14
[2025-02-26 08:49] VITALS: BP 147/82; PULSE 83; RESP 18; TEMP 37.1; O2SAT 97
== END 2025-02-26 09:18 | disposition home or self-care (01) ==
PROVIDERS: Emergency Provider Nurse Practitioner Family; PCP Family Medicine Adolescent Medicine
DX: M54.50 Low back pain, unspecified (principal); F17.210 Nicotine dependence, cigarettes, uncomplicated; F12.90 Cannabis use, unspecified, uncomplicated; E66.9 Obesity, unspecified; Z68.31 Body mass index [BMI] 31.0-31.9, adult
CPT/HCPCS: 99213; G0463